=== PATIENT | female | born 1970 | race Caucasian/White ===

== ENCOUNTER 2016-12-02 05:42 | Emergency (ER) | payer OTHER ==
[2016-12-02] MEDS ORDERED: ALBUTEROL SO4 2.5/IPRATROPIUM 0.5 INH SOL 3 ML VIAL.NEB. NEB ONE ×2 (06:10→06:13)
--- NOTE | 2016-12-02 06:27 | PDOC ---
*Physical Exam - Vital Signs Last Vital Signs Temp Pulse Resp BP Pulse Ox 97.9 F 80 16 126/83 98 12/02/16 05:56 12/02/16 05:56 12/02/16 05:56 12/02/16 05:56 12/02/16 06:07 ED Treatment Course - Medications Given in the ED: ED Medications Discontinued Medications Generic Name Dose Route Start Last Admin Trade Name Freq PRN Reason Stop Dose Admin Albuterol/Ipratropium 1 amp 12/02/16 06:10 12/02/16 06:15 Duoneb - NEB 12/02/16 06:11 1 amp ONCE ONE Administration Medical Decision Making - Medical Decision Making 12/02/16 06:27 agree with care from NANNETTE Markham *DC/Admit/Observation/Transfer Diagnosis at time of Disposition: Asthma exacerbation - Discharge Dispostion Disposition: HOME Condition at time of disposition: Improved - Prescriptions Prescriptions: Prednisone [Deltasone -] 40 mg PO DAILY #8 tablet Albuterol 0.083% Nebulizer Yun [Ventolin 0.083% Nebulizer Soln -] 1 neb NEB PRN #1 pack Albuterol Sulfate Inhaler - [Ventolin HFA Inhaler -] 1 - 2 inh PO QID #1 inhaler - Referrals Referrals: Megan Flynn SKINNING MACHINE FEEDER [Primary Care Provider] - - Patient Instructions Printed Discharge Instructions: DI for Asthma -- Adult Additional Instructions: Discharge Instructions: -Use inhaler as prescribed for asthma symptoms -Take Prednisone as prescribed and complete entire course -Follow up with your doctor within 1 week -Return to the ER with any worsening or concerning symptoms
[2016-12-02] MEDS ORDERED: DEXAMETHASONE LIQUID 0.5 MG/5 ML 240 ML BULK BOTTLE PO ONE (06:36)
--- NOTE | 2016-12-02 06:36 | PDOC ---
[id number] DIFFICULTY BREATHING Time Seen by Provider: 12/02/16 06:02 - History of Present Illness Initial Comments: 12/02/16 06:36 CHIEF COMPLAINT: asthma attack HISTORY OF PRESENT ILLNESS: 45-year-old female with hx of asthma, GERD HIV, presents to the emergency dept for asthma attack. Pt states she was using her inhaler with no relief. No recent travel or sick contacts. PAST MEDICAL HISTORY: Denies past medical history FAMILY HISTORY: Denies SOCIAL HISTORY: Denies tobacco, alcohol, illicit drug use. SURGICAL HISTORY: Denies ALLERGIES: No known drug allergies REVIEW OF SYSTEMS General/Constitutional: Denies fever or chills. Denies weakness, weight change. HEENT: Denies change in vision. Denies ear pain or discharge. Denies sore throat. Cardiovascular: Denies chest pain or shortness of breath. Respiratory: Shortness of breath. Gastrointestinal: Denies nausea, vomiting, diarrhea or constipation. Denies rectal bleeding. Genitourinary: Denies dysuria, frequency, or change in urination. Musculoskeletal: Denies joint or muscle swelling or pain. Denies neck or back pain. Skin and breasts: Denies rash or easy bruising. Neurologic: Denies headache, vertigo, loss of consciousness, or loss of sensation. PHYSICAL EXAM General Appearance: Well-appearing, appropriately dressed. No apparent distress , no intoxication. HEENT: EOMI, PERRLA, normal ENT inspection, normal voice, TMs normal, pharynx normal. No conjunctival pallor. No photophobia, scleral icterus. Neck: Supple. Trachea midline. No tenderness, rigidity, carotid bruit, stridor , lymphadenopathy, or thyromegaly. Respiratory/Chest: Lungs CTAB. No shortness of breath, chest tenderness, respiratory distress, accessory muscle use. No crackles, rales, rhonchi, stridor , wheezing, dullness Cardiovascular: RRR. S1, S2. No JVD, murmur, bradycardia, tachycardia. Vascular Pulses: Dorsalis-Pedis (R): 2+, Dorsalis-Pedis (L): 2+ Gastrointestinal/Abdominal: Normal bowel sounds. Abdomen soft, non-distended. No tenderness or rebound tenderness. No organomegaly, pulsatile mass, guarding , hernia, hepatomegaly, splenomegaly. Lymphatic: No adenopathy, tenderness. Musculoskeletal/Extremities: Normal inspection. FROM of all extremities, normal capillary refill. Pelvis Stable. No CVA tenderness. No tenderness to extremities, pedal edema, swelling, erythema or deformity. Integumentary: Appropriate color, dry, warm. No cyanosis, erythema, jaundice or rash Neurologic: base ply hand II-XII intact. Fully oriented, alert. Appropriate mood/affect. Motor strength 5/5. No appreciable EOM palsy, facial droop or sensory deficit. 12/02/16 06:41 12/02/16 06:42 Past History - Past Medical History Allergies/Adverse Reactions: Allergies Allergy/AdvReac Type Severity Reaction Status Date / Time No Known Allergies Allergy Verified 12/02/16 05:55 Home Medications: Ambulatory Orders Albuterol 0.083% Nebulizer Yun [Ventolin 0.083% Nebulizer Soln -] 1 neb NEB PRN PRN #1 pack 05/28/16 Albuterol Sulfate Inhaler - [Ventolin HFA Inhaler -] 1 - 2 inh PO QID #1 inhaler 05/28/16 Budesonide/Formeterol Fumarate [SYMBICORT 160/4.5mcg -] 2 inh IH BID #1 inhaler 05/28/16 Dolutegravir Sodium [Tivicay] 1 tab PO DAILY #30 tablet 05/28/16 Emtricita/Rilpivirine/Tenof Df [Complera Tablet] 1 tab PO DAILY #30 tablet 05/28 Loratadine [Claritin -] 10 mg PO DAILY #30 tablet 05/28/16 Montelukast Na [Singulair -] 10 tab PO HS #30 tablet 05/28/16 Ranitidine [Zantac -] 150 mg PO DAILY #30 tablet 05/28/16 Sulfamethoxazole/Trimethoprim [Bactrim DS -] 1 tab PO DAILY #30 tablet 05/28/16 Citalopram Hydrobromide [Celexa -] 10 mg PO DAILY #30 tablet 09/30/16 Albuterol 0.083% Nebulizer Yun [Ventolin 0.083% Nebulizer Soln -] 1 neb NEB PRN #1 pack 12/02/16 Albuterol Sulfate Inhaler - [Ventolin HFA Inhaler -] 1 - 2 inh PO QID #1 inhaler 12/02/16 Prednisone [Deltasone -] 40 mg PO DAILY #8 tablet 12/02/16 Anemia: No Asthma: Yes Cancer: No Cardiac Disorders: No CVA: No COPD: No CHF: No Dementia: No Diabetes: No GI Disorders: No Disorders: No HTN: No Hypercholesterolemia: No HIV: Yes Liver Disease: No Seizures: No Thyroid Disease: No - Surgical History Abdominal Surgery: No Appendectomy: No Cardiac Surgery: No Cholecystectomy: No Lung Surgery: No Neurologic Surgery: No Orthopedic Surgery: No - Immunization History Immunization Up to Date: Yes - Psycho/Social/Smoking Cessation Hx Anxiety: No Suicidal Ideation: No Smoking Status: No Smoking History: Never smoked Have you smoked in the past 12 months: No Number of Cigarettes Smoked Daily: 0 Cigars Per Day: 0 Information on smoking cessation initiated: No Hx Alcohol Use: No Drug/Substance Use Hx: No Substance Use Type: None Hx Substance Use Treatment: No Respiratory Specific PMHX - Complaint Specific PMHX TB (Tuberculosis): No *Physical Exam - Vital Signs Last Vital Signs Temp Pulse Resp BP Pulse Ox 97.9 F 80 16 126/83 98 12/02/16 05:56 12/02/16 05:56 12/02/16 05:56 12/02/16 05:56 12/02/16 06:07 ED Treatment Course - Medications Given in the ED: ED Medications Discontinued Medications Generic Name Dose Route Start Last Admin Trade Name Freq PRN Reason Stop Dose Admin Albuterol/Ipratropium 1 amp 12/02/16 06:10 12/02/16 06:15 Duoneb - NEB 12/02/16 06:11 1 amp ONCE ONE Administration Medical Decision Making - Medical Decision Making 12/02/16 06:43 45-year-old female with hx of asthma, GERD HIV, presents to the emergency dept for asthma exacerbation. Pt states she was using her inhaler with no relief. -Duoneb Patient reassessed, states she feels better but "still a little tight." Patient is still wheezing bilaterally. -10 mg Decadron po -Influenza rapid swab -CXR Case discussed in detail with oncoming emergency provider including history, physical exam and ancillary studies. In brief, this patient is being seen in the ED for a chief complaint of: asthma exacerbation I have completed the initial assessment interview note and have ordered the following labs: CXR, flu swab Plan for disposition as follows: pending Oncoming [facility] Wohltman has assumed care for the patient and will complete the evaluation and treatment. *DC/Admit/Observation/Transfer Diagnosis at time of Disposition: Asthma exacerbation - Discharge Dispostion Disposition: HOME Condition at time of disposition: Improved - Prescriptions Prescriptions: Prednisone [Deltasone -] 40 mg PO DAILY #8 tablet Albuterol 0.083% Nebulizer Yun [Ventolin 0.083% Nebulizer Soln -] 1 neb NEB PRN #1 pack Albuterol Sulfate Inhaler - [Ventolin HFA Inhaler -] 1 - 2 inh PO QID #1 inhaler - Referrals Referrals: Megan Flynn, SPLITTING MACHINE OPERATOR [Primary Care Provider] - - Patient Instructions Printed Discharge Instructions: DI for Asthma -- Adult Additional Instructions: Discharge Instructions: -Use inhaler as prescribed for asthma symptoms -Take Prednisone as prescribed and complete entire course -Follow up with your doctor within 1 week -Return to the ER with any worsening or concerning symptoms
[2016-12-02 06:37] VITALS: TEMP 97.9; BMI 25.4
[2016-12-02] MEDS ORDERED: DEXAMETHASONE SOD PHOSPHATE 10 MG/1 ML VIAL ONE (06:41)
--- NOTE | 2016-12-02 07:31 | PDOC ---
ED Treatment Course - Medications Given in the ED: ED Medications Discontinued Medications Generic Name Dose Route Start Last Admin Trade Name Albin PRN Reason Stop Dose Admin Albuterol/Ipratropium 1 amp 12/02/16 06:10 12/02/16 06:15 Duoneb - NEB 12/02/16 06:11 1 amp ONCE ONE Administration Dexamethasone 10 mg 12/02/16 06:36 12/02/16 06:51 Decadron Liquid - PO 12/02/16 06:37 10 mg ONCE ONE Administration Progress Note - Progress Note Progress Note: I have received report from NANNETTE Markham regarding this patient. Pt's initial chief complaint: asthma exacerbation Pt's work up completed prior to sign out: CXR Pt treatment given from prior staff: arsen Pena Pt plan to be completed: Awaiting influenza and reassess Dispo: most likely d/c Medical Decision Making - Medical Decision Making A/P: 46 y/o afebrile female with asthma exacerbation. waiting for influenza and reassess. Influenza - negative CXR - negative The patient states she feels much better since having the treatments. Will discharge to home with an rx for 4 days of prednisone and albuterol inhaler. Pt instructed to return to the ER with any worsening or concerning symptoms. The patient verbalizes understanding of all instructions, has no further questions and is awaiting discharge. *DC/Admit/Observation/Transfer Diagnosis at time of Disposition: Asthma exacerbation - Discharge Dispostion Disposition: HOME Condition at time of disposition: Improved - Referrals Referrals: Megan Flynn CARPENTER LABOR SUPERVISOR [Primary Care Provider] - - Patient Instructions Printed Discharge Instructions: DI for Asthma -- Adult Additional Instructions: Discharge Instructions: -Use inhaler as prescribed for asthma symptoms -Take Prednisone as prescribed and complete entire course -Follow up with your doctor within 1 week -Return to the ER with any worsening or concerning symptoms
[2016-12-02 08:13] VITALS: BP 117/66; PULSE 94
== END 2016-12-02 08:35 | disposition home or self-care (01) ==
LOC: JER 05:42
PROC: 3E0F7GC Introduction of Other Therapeutic Substance into Respiratory Tract, Via Natural or Artificial Opening (ICD-10-PCS; principal; 2016-12-02)
DX: J45.901 Unspecified asthma with (acute) exacerbation (principal); Z21 Asymptomatic human immunodeficiency virus [HIV] infection status; K21.9 Gastro-esophageal reflux disease without esophagitis; J45.909 Unspecified asthma, uncomplicated
CPT/HCPCS: 71020-TC; 87804; 99285-25

== ENCOUNTER 2017-06-06 18:30 | Emergency (ER) | payer OTHER ==
[2017-06-06 18:37] VITALS: BP 120/80; PULSE 71; TEMP 97.8; BMI 27.3
--- NOTE | 2017-06-06 19:31 | PDOC ---
History of Present Illness - General Chief Complaint: Injury Stated Complaint: LACERATION Time Seen by Provider: 06/06/17 18:42 History Source: Patient Exam Limitations: No Limitations - History of Present Illness Initial Comments: 06/06/17 19:26 CC fell on steps hitting left elbow and cutting left forearm Occurred: reports: just prior to arrival Severity: reports: mild Pain Location: reports: upper extremity Method of Injury: Yes: fall Past History - Past Medical History Allergies/Adverse Reactions: Allergies Allergy/AdvReac Type Severity Reaction Status Date / Time No Known Allergies Allergy Verified 06/06/17 18:32 Home Medications: Ambulatory Orders Dolutegravir Sodium [Tivicay] 1 tab PO DAILY #30 tablet 05/28/16 Emtricita/Rilpivirine/Tenof Df [Complera Tablet] 1 tab PO DAILY #30 tablet 05/28 Loratadine [Claritin -] 10 mg PO DAILY #30 tablet 05/28/16 Albuterol 0.083% Nebulizer Yun [Ventolin 0.083% Nebulizer Soln -] 1 neb NEB PRN #1 pack 04/06/17 Albuterol Sulfate Inhaler - [Ventolin HFA Inhaler -] 1 - 2 inh PO QID #1 inhaler 04/06/17 Budesonide/Formeterol Fumarate [SYMBICORT 160/4.5mcg -] 2 inh IH BID #1 inhaler 04/06/17 Citalopram Hydrobromide [Celexa -] 10 mg PO DAILY #30 tablet 04/06/17 Lactose-Reduced Food [Ensure Liquid] 237 ml PO TID #90 liquid 04/06/17 Montelukast Na [Singulair -] 10 tab PO HS #30 tablet 04/06/17 Ranitidine [Zantac -] 150 mg PO DAILY #30 tablet 04/06/17 Sulfamethoxazole/Trimethoprim [Bactrim DS -] 1 tab PO DAILY #30 tablet 04/06/17 Fluticasone/Salmeterol [Advair 250-50 Diskus] 1 each IH BID #1 blst.w.dev Anemia: No Asthma: Yes Cancer: No Cardiac Disorders: No CVA: No COPD: No CHF: No Dementia: No Diabetes: No GI Disorders: No Disorders: No HTN: No Hypercholesterolemia: No HIV: Yes Liver Disease: No Seizures: No Thyroid Disease: No - Surgical History Abdominal Surgery: No Appendectomy: No Cardiac Surgery: No Cholecystectomy: No Lung Surgery: No Neurologic Surgery: No Orthopedic Surgery: No - Immunization History Immunization Up to Date: Yes - Psycho/Social/Smoking Cessation Hx Anxiety: No Suicidal Ideation: No Smoking Status: No Smoking History: Never smoked Have you smoked in the past 12 months: No Number of Cigarettes Smoked Daily: 0 Cigars Per Day: 0 Information on smoking cessation initiated: No Hx Alcohol Use: No Drug/Substance Use Hx: No Substance Use Type: None Hx Substance Use Treatment: No Review of Systems - Review of Systems Constitutional: Yes: Symptoms Reported HEENTM: No: Symptoms Reported Respiratory: No: Symptoms reported Musculoskeletal: Yes: Joint Pain. No: Back Pain, Neck Pain Integumentary: Yes: Other (laceration left forearm) *Physical Exam - Vital Signs Last Vital Signs Temp Pulse Resp BP Pulse Ox 97.8 F 71 18 120/80 100 06/06/17 18:33 06/06/17 18:33 06/06/17 18:33 06/06/17 18:33 06/06/17 18:33 - Physical Exam General Appearance: Yes: Appropriately Dressed Neck: positive: Supple. negative: Tender, Rigid, Tender midline Respiratory/Chest: positive: Lungs Clear Integumentary: positive: Other (6 cm laceration volar surface mid left forearm; also tenderness to olecron) Procedures - Laceration/Wound Repair Left Volar Arm Wound Length: 5.0 to 7.5 cm Wound's Depth, Shape: linear Irrigated w/ Saline: Yes Betadine Prep: Yes Anesthesia: 1% Lidocaine Amount of Anesthetic (ccs): 5 Wound Debrided: minimal Wound Repaired With: Sutures Suture Size/Type: 5:0, 4:0, nylon Number of Sutures: 10 ED Treatment Course - RADIOLOGY Radiology Studies Ordered: Category Date Time Status ELBOW-LEFT [RAD] Stat Radiology 06/06/17 18:49 Taken Medical Decision Making - Medical Decision Making 06/06/17 19:29 xray= negative read by me; Td = utd *DC/Admit/Observation/Transfer Diagnosis at time of Disposition: Contusion of elbow, left Qualifiers: Encounter type: initial encounter Qualified Code(s): S50.02XA - Contusion of left elbow, initial encounter Laceration of arm Qualifiers: Encounter type: initial encounter Laterality: left Qualified Code(s): S41.112A - Laceration without foreign body of left upper arm, initial encounter - Discharge Dispostion Disposition: HOME Condition at time of disposition: Stable Admit: No - Patient Instructions Additional Instructions: wound check in ED in 2 days; sutures out 12 days; keep dry x 2 days
== END 2017-06-06 19:35 | disposition home or self-care (01) ==
LOC: JERFT 18:30
PROC: 0JQH0ZZ Repair Left Lower Arm Subcutaneous Tissue and Fascia, Open Approach (ICD-10-PCS; principal; 2017-06-06)
DX: S51.812A Laceration without foreign body of left forearm, initial encounter (principal); S50.02XA Contusion of left elbow, initial encounter; Z21 Asymptomatic human immunodeficiency virus [HIV] infection status; W01.110A Fall on same level from slipping, tripping and stumbling with subsequent striking against sharp glass, initial encounter; Y93.89 Activity, other specified; Y92.89 Other specified places as the place of occurrence of the external cause; Y99.8 Other external cause status
CPT/HCPCS: 73070-TC-LT; 99282-25

== ENCOUNTER 2018-07-11 18:26 | Inpatient (IN) | payer OTHER ==
[2018-07-11 18:50] VITALS: BMI 24.5
[2018-07-11] MEDS ORDERED: methylPREDNISolone NA SUCC 125 MG/2 ML VIAL IVPB ONE (18:54)
[2018-07-11] MEDS ORDERED: FAMOTIDINE 20 MG/50 ML IVPB 20 MG/50 ML MG IVPB ONE ×2 (18:54→19:06)
[2018-07-11] MEDS ORDERED: EPINEPHrine 1:1,000 0.3 MG/0.3 ML SYR IM ONE (18:54)
--- NOTE | 2018-07-11 19:01 | PDOC ---
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 The home has recently been treated for insect - Physicial Exam PE: 07/11/18 19:14 head ncat slender 48 yo female p/w swollen eyelids eyes eomi neck supple throat uvula midline,no edema lungs cta b/l cvs tachycardia abd flat,nontender ext no edema skin hives neuro axox3,ambulatory psych anxious 07/11/18 19:42 - Medical Decision Making 07/11/18 20:44 initially we were told by pharmacy that the hospital has no injectable bendryl and pt received po benadryl unfortunately she started to c/o throat swelling and subcutaneous epi was given -We found injectable benadryl in telemetry and pt improved IMP anaphylaxis pt admitted for airway precautions
[2018-07-11] MEDS ORDERED: EPINEPHrine/PF 1 MG/1 ML (1:1,000) AMPULE ONE ×2 (19:05→20:07)
[2018-07-11] MEDS ORDERED: methylPREDNISolone NA SUCC 125 MG/2 ML VIAL ONE (19:05)
[2018-07-11] MEDS ORDERED: diphenhydrAMINE HCL 25 MG CAPSULE (FP) PO ONE ×2 (19:10→19:26)
[2018-07-11 19:16] LABS: HEMATOCRIT 39.5 % (32.4-45.2); HEMOGLOBIN 13.2 GM/dL (10.7-15.3); MCH 29.4 pg (25.7-33.7); MCHC 33.5 g/dl (32.0-36.0); MEAN CELL VOLUME 87.7 fl (80-96); PLATELET COUNT 212 K/MM3 (134-434); RDW 14.8 % (11.6-15.6); WHITE BLOOD COUNT 8.7 K/mm3 (4.0-10.0)
[2018-07-11] MEDS ORDERED: ACETAMINOPHEN INJECTION 100 ML IVPB ONE (19:26)
[2018-07-11] MEDS ORDERED: ACETAMINOPHEN 1000 MG/100 ML VIAL (NON FORMULARY) IVPB ONE (19:29)
[2018-07-11] MEDS ORDERED: EPINEPHrine 1:1,000 1 MG/1 ML - 30ML VIAL (INJECTION) SQ ONE ×2 (19:45→19:46)
--- NOTE | 2018-07-11 19:45 | PDOC ---
History of Present Illness - General Chief Complaint: Allergic Reaction Stated Complaint: ALLERGIC REACTION, DIFFICULTY BREATHING, FACE SWOL Time Seen by Provider: 07/11/18 18:48 History Source: Patient Exam Limitations: No Limitations - History of Present Illness Initial Comments: 07/11/18 20:10 Patient is a 48F with history of HIV, last CD4 count 215, here today complaining of an allergic reaction. Patient states that she did not have any recent changes in medications or new food exposure. 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 Endorses swelling to her eyes, throat pain, shortness of breath, nausea. Endorses chest pain and difficulty swallowing. Unsure of what medication she takes. Past History - Past Medical History Allergies/Adverse Reactions: Allergies Allergy/AdvReac Type Severity Reaction Status Date / Time No Known Allergies Allergy Verified 07/11/18 18:50 Home Medications: Ambulatory Orders Abacavir/Dolutegravir/Lamivudi [Triumeq Tablet] 1 tab PO DAILY 07/01/18 Albuterol 0.083% Nebulizer Yun [Ventolin 0.083% Nebulizer Soln -] 1 neb PO QID # 1 box 07/01/18 Albuterol Sulfate Inhaler - [Ventolin HFA Inhaler -] 2 inh PO QID #1 inhaler 09/06 Esomeprazole Magnesium 1 cap PO DAILY #30 capsule.dr 07/01/18 Fluticasone/Salmeterol [Advair 250-50 Diskus] 1 inh PO BID #1 blst.w.dev Loratadine [Claritin -] 1 tab PO DAILY #30 tablet 07/01/18 Montelukast Na [Singulair -] 1 tab PO HS #30 tablet 07/01/18 Tenofovir Disoproxil Fumarate [Viread -] 1 tab PO DAILY 07/01/18 Anemia: No Asthma: Yes Cancer: No Cardiac Disorders: No CVA: No COPD: No CHF: No Dementia: No Diabetes: No GI Disorders: No Disorders: No HTN: No Hypercholesterolemia: No Liver Disease: No Seizures: No Thyroid Disease: No - Surgical History Abdominal Surgery: No Appendectomy: No Cardiac Surgery: No Cholecystectomy: No Lung Surgery: No Neurologic Surgery: No Orthopedic Surgery: No - Immunization History Immunization Up to Date: Yes - Suicide/Smoking/Psychosocial Hx Smoking Status: No Smoking History: Never smoked Have you smoked in the past 12 months: No Number of Cigarettes Smoked Daily: 0 Cigars Per Day: 0 Information on smoking cessation initiated: No Hx Alcohol Use: No Drug/Substance Use Hx: No Substance Use Type: None Hx Substance Use Treatment: No Review of Systems - Review of Systems Comments:: 07/11/18 20:13 GENERAL/CONSTITUTIONAL: No fever or chills. No weakness. HEAD, EYES, EARS, NOSE AND THROAT: +eye swelling. No ear pain or discharge. + sore throat. CARDIOVASCULAR: No chest pain +shortness of breath RESPIRATORY: No cough, + wheezing, no hemoptysis. GASTROINTESTINAL: +nausea, no vomiting, diarrhea or constipation. GENITOURINARY: No dysuria, frequency, or change in urination. MUSCULOSKELETAL: No joint or muscle swelling or pain. No neck or back pain. SKIN: No rash NEUROLOGIC: No headache, vertigo, loss of consciousness, or change in strength/ sensation. ENDOCRINE: No increased thirst. No abnormal weight change HEMATOLOGIC/LYMPHATIC: No anemia, easy bleeding, or history of blood clots. ALLERGIC/IMMUNOLOGIC: No hives or skin allergy. *Physical Exam - Vital Signs Last Vital Signs Temp Pulse Resp BP Pulse Ox 97.7 F 63 16 107/65 100 07/11/18 18:46 07/11/18 18:46 07/11/18 18:46 07/11/18 18:46 07/11/18 18:46 - Physical Exam Comments: 07/11/18 20:15 GENERAL: Awake, alert, and fully oriented, in no acute distress HEAD: No signs of trauma, normocephalic, atraumatic EYES: PERRLA, EOMI, sclera anicteric, conjunctiva clear, eyelids swollen, difficult to open eyes ENT: Auricles normal inspection, hearing grossly normal, nares patent, mallampati 2 NECK: Normal ROM, supple, no lymphadenopathy, JVD, or masses LUNGS: No distress, speaks full sentences, wheezes bilaterally HEART: Regular rate and rhythm, normal S1 and S2, no murmurs, rubs or gallops, peripheral pulses normal and equal bilaterally. ABDOMEN: Soft, nontender, normoactive bowel sounds. No guarding, no rebound. No masses EXTREMITIES: Normal inspection, Normal range of motion, no edema. No clubbing or cyanosis. NEUROLOGICAL: Cranial nerves II through XII grossly intact. Normal speech, no focal sensorimotor deficits SKIN: Warm, Dry, normal turgor, no rashes or lesions noted. ED Treatment Course - LABORATORY CBC & Chemistry Diagram: 07/11/18 19:08 07/11/18 19:08 - ADDITIONAL ORDERS Additional order review: 07/11/18 19:08 RBC 4.50 MCV 87.7 MCHC 33.5 RDW 14.8 MPV 9.0 - Medications Given in the ED: ED Medications Discontinued Medications Generic Name Dose Route Start Last Admin Trade Name Albin PRN Reason Stop Dose Admin Acetaminophen 1,000 mg 07/11/18 19:29 07/11/18 19:34 Ofirmev Injection - IVPB 07/11/18 19:30 1,000 mg ONCE ONE Administration Diphenhydramine HCl 50 mg 07/11/18 18:54 07/11/18 19:25 Benadryl Injection - IVPUSH 07/11/18 18:55 Not Given ONCE ONE Diphenhydramine HCl 50 mg 07/11/18 19:10 07/11/18 19:34 Benadryl - PO 07/11/18 19:11 50 mg ONCE ONE Administration Epinephrine 0.3 mg 07/11/18 18:54 07/11/18 19:24 Epipen 0.3mg - IM 07/11/18 18:55 0.3 mg ONCE ONE Administration Famotidine/Sodium Chloride 20 mg in 50 mls @ 100 mls/hr 07/11/18 18:54 19:24 Pepcid 20 Mg Premixed Ivpb - IVPB 07/11/18 19:23 100 mls/hr ONCE ONE Administration Methylprednisolone Sodium Succinate 125 mg 07/11/18 18:54 07/11/18 19:15 Solu-Medrol - IVPB 07/11/18 18:55 125 mg ONCE ONE Administration Medical Decision Making - Medical Decision Making 07/11/18 20:16 Patient is 48F with history of HIV here today with allergic reaction. Vitals normal and stable. Given benadryl PO initially due to lack of IV form, IV form later found on inpatient floor, given. Also given pepcid, IM epi, solumedrol. After initial medication given, patient complained of increased pain in throat. Mallampati now grade 3 with increased swelling in face. Airway equipment at bedside, given additional round of IM epi. Patient now improving. Will monitor, likely admit to ICU. 07/11/18 20:[address] Approved to ICU by Dr Shana Blair. 07/11/18 23:[address] Tao for admission. *DC/Admit/Observation/Transfer Diagnosis at time of Disposition: Anaphylaxis - Discharge Dispostion Condition at time of disposition: Critical Decision to Admit order: Yes - Referrals - Patient Instructions - Post Discharge Activity
[2018-07-11 19:51] LABS: ALBUMIN 3.9 g/dl (3.4-5.0); ALK PHOS 83 U/L (45-117); ANION GAP 8 MMOL/L (8-16); BILIRUBIN,TOTAL 0.3 mg/dL (0.2-1); BLOOD UREA NITROGEN 13 mg/dL (7-18); CALCIUM 8.4 mg/dL (8.5-10.1); CHLORIDE 109 mmol/L (98-107); CO2 27 mmol/L (21-32); CREATININE 0.6 mg/dL (0.55-1.3); GLUCOSE,RANDOM 83 mg/dL (74-106); POTASSIUM 3.8 mmol/L (3.5-5.1); SGOT/AST 19 U/L (15-37); SGPT/ALT 27 U/L (13-61); SODIUM 145 mmol/L (136-145)
--- NOTE | 2018-07-11 20:55 | HP ---
Admitting History and Physical - Primary Care Physician PCP: Robbi Tao - Admission History of Present Illness: - 48F with history of HIV, last CD4 count 215, here today complaining of an allergic reaction. Patient states that she did not have any recent changes in medications or new food exposure. 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 Unsure of what medication she takes. - Past Medical History ...LMP: 07/27/14 Infectious Disease: Yes: HIV - Smoking History Smoking history: Never smoked Have you smoked in the past 12 months: No Aproximately how many cigarettes per day: 0 - Alcohol/Substance Use Hx Alcohol Use: No Home Medications - Allergies Allergies/Adverse Reactions: Allergies Allergy/AdvReac Type Severity Reaction Status Date / Time No Known Allergies Allergy Verified 07/11/18 18:50 - Home Medications Home Medications: Ambulatory Orders Abacavir/Dolutegravir/Lamivudi [Triumeq Tablet] 1 tab PO DAILY 07/01/18 Albuterol 0.083% Nebulizer Yun [Ventolin 0.083% Nebulizer Soln -] 1 neb PO QID # 1 box 07/01/18 Albuterol Sulfate Inhaler - [Ventolin HFA Inhaler -] 2 inh PO QID #1 inhaler 09/06 Esomeprazole Magnesium 1 cap PO DAILY #30 capsule. 07/01/18 Fluticasone/Salmeterol [Advair 250-50 Diskus] 1 inh PO BID #1 blst.w.dev Loratadine [Claritin -] 1 tab PO DAILY #30 tablet 07/01/18 Montelukast Na [Singulair -] 1 tab PO HS #30 tablet 07/01/18 Tenofovir Disoproxil Fumarate [Viread -] 1 tab PO DAILY 07/01/18 Family Disease History - Family Disease History Family Disease History: Other: Grandparent (pat gma hx liver disease), Father (a &w), Mother (a&w, stable htn, thyroid, arthritis), Brother (all a&w), Sister ( all a&w), Son (1), Daughter (1) Physical Examination Vital Signs: Vital Signs Temperature 97.7 F 07/11/18 18:46 Pulse Rate 63 07/11/18 18:46 Respiratory Rate 16 07/11/18 18:46 Blood Pressure 107/65 07/11/18 18:46 O2 Sat by Pulse Oximetry (%) 100 07/11/18 18:46 Constitutional: Yes: Calm HENT: Yes: Atraumatic, Other (throat wnl) Neck: Yes: Supple Cardiovascular: Yes: Regular Rate and Rhythm Respiratory: Yes: Rhonchi Gastrointestinal: Yes: Normal Bowel Sounds Extremities: Yes: WNL Edema: No Neurological: Yes: Alert, Oriented Labs: CBC, BMP 07/11/18 19:08 07/11/18 19:08 Problem List - Problems (1) Anaphylaxis Assessment/Plan: on iv steroids iv benadryl npo ent consult Code(s): T78.2XXA - ANAPHYLACTIC SHOCK, UNSPECIFIED, INITIAL ENCOUNTER (2) AIDS (acquired immune deficiency syndrome) Code(s): B20 - HUMAN IMMUNODEFICIENCY VIRUS [HIV] DISEASE Assessment/Plan Laboratory Tests 07/11/18 07/11/18 19:08 19:08 WBC 8.7 RBC 4.50 Hgb 13.2 Hct 39.5 MCV 87.7 MCH 29.4 MCHC 33.5 RDW 14.8 Plt Count 212 MPV 9.0 Sodium 145 Potassium 3.8 Chloride 109 H Carbon Dioxide 27 Anion Gap 8 BUN 13 Creatinine 0.6 Creat Clearance w eGFR > 60 Random Glucose 83 Calcium 8.4 L Total Bilirubin 0.3 AST 19 ALT 27 Alkaline Phosphatase 83 Total Protein 8.0 Albumin 3.9 Active Medications Generic Name Dose Route Start Last Admin Trade Name Noeq PRN Reason Stop Dose Admin Diphenhydramine HCl 25 mg 07/11/18 21:00 07/12/18 14:55 Benadryl Injection - IVPB 25 mg Q6H-IV TRENT Administration Sodium Chloride 1,000 mls @ 75 mls/hr 07/11/18 21:00 07/11/18 23:11 Normal Saline - IV 75 mls/hr ASDIR TRENT Administration Methylprednisolone Sodium Succinate 60 mg 07/12/18 03:00 07/12/18 14:53 Solu-Medrol - IVPUSH 60 mg Q6H-IV TRENT Administration
[2018-07-11] MEDS ORDERED: SODIUM CHLORIDE 1,000 ML IV SCH (21:00)
--- NOTE | 2018-07-12 00:11 | HP ---
CHIEF COMPLAINT: Swelling of face and itching PCP: Dr. Tao HISTORY OF PRESENT ILLNESS: Patient is a 48 year old female with a PMHx of HIV w/ last CD4 count 215 who presented here today complaining of swelling of bilateral eyes associated with shortness of breath, throat pain and difficulty swallowing. 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 Around 1400 patient reports she started having bilateral eye swelling with itching throughout her body. Patient reports she did not use any chemicals today except for hand soap, which is the normal hand soap she uses. Patient reports having shortness of breath with complete eyes closed shut from the swelling, which prompted this hospital visit. Patient denies any changes to her food, laundry detergents, soap, perfume, or food. Patient denies taking any new medications. Otherwise, patient currently denies any fever, chills, vomiting , abdominal pain, chest pain, palpitations, headaches, diarrhea, constipation. In the ED patients vitals were wnl and stable 02 saturation. She was given Benadryl PO and IV, Pepcid, 2 IM epi, and solumedrol. Patient continued to have increasing throat pain and swelling of the face. 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 07/01/18 Fluticasone/Salmeterol [Advair 1 inh PO BID #1 blst.w.dev 07/01/18 250-50 Diskus] Loratadine [Claritin -] 1 tab PO DAILY #30 tablet 07/01/18 Montelukast Na [Singulair -] 1 tab PO HS #30 tablet 07/01/18 Tenofovir Disoproxil Fumarate 1 tab PO DAILY 07/01/18 [Viread -] REVIEW OF SYSTEMS CONSTITUTIONAL: Absent: fever, chills, diaphoresis, generalized weakness, malaise, loss of appetite, weight change HEENT: throat pain, difficulty swallowing, eye swelling Absent: rhinorrhea, nasal congestion, throat swelling, mouth swelling, ear pain , eye pain, visual changes CARDIOVASCULAR: Absent: chest pain, syncope, palpitations, irregular heart rate, lightheadedness , peripheral edema RESPIRATORY: shortness of breath Absent: cough, dyspnea with exertion, orthopnea, wheezing, stridor, hemoptysis GASTROINTESTINAL: Absent: abdominal pain, abdominal distension, nausea, vomiting, diarrhea, constipation, melena, hematochezia GENITOURINARY: Absent: dysuria, frequency, urgency, hesitancy, hematuria, flank pain, genital pain MUSCULOSKELETAL: Absent: myalgia, arthralgia, joint swelling, back pain, neck pain SKIN: itching Absent: rash, pallor HEMATOLOGIC/IMMUNOLOGIC: Absent: easy bleeding, easy bruising, lymphadenopathy, frequent infections ENDOCRINE: Absent: unexplained weight gain, unexplained weight loss, heat intolerance, cold intolerance NEUROLOGIC: Absent: headache, focal weakness or paresthesias, dizziness, unsteady gait, seizure, mental status changes, bladder or bowel incontinence PSYCHIATRIC: Absent: anxiety, depression, suicidal or homicidal ideation, hallucinations. PHYSICAL EXAMINATION Vital Signs - 24 hr 07/11/18 07/11/18 07/11/18 18:46 19:15 20:00 Temperature 97.7 F Pulse Rate 63 Pulse Rate [ 87 Apical] Respiratory 16 19 Rate Blood Pressure 107/65 Blood Pressure 133/76 [Right Arm] O2 Sat by Pulse 100 100 97 Oximetry (%) 07/11/18 07/11/18 20:15 21:00 Temperature Pulse Rate Pulse Rate [ 89 97 H Apical] Respiratory 21 H 23 H Rate Blood Pressure Blood Pressure 138/84 134/74 [Right Arm] O2 Sat by Pulse 97 96 Oximetry (%) GENERAL: Awake, alert, and fully oriented, in no acute distress. HEAD: Normal with no signs of trauma. EYES: Pupils equal, round and reactive to light, sclera anicteric, conjunctiva clear. Bilateral eye swelling with difficulty opening eyes. EARS, NOSE, THROAT: Ears normal, nares patent, oropharynx clear without exudates. Moist mucous membranes. No Uvula swelling NECK: Normal range of motion, supple without lymphadenopathy, JVD, or masses. LUNGS: Breath sounds equal, clear to auscultation bilaterally. No wheezes, and no crackles. No accessory muscle use. HEART: Regular rate and rhythm, normal S1 and S2 without murmur, rub or gallop. ABDOMEN: Soft, nontender, not distended, normoactive bowel sounds, no guarding, no rebound, no masses. MUSCULOSKELETAL: No CVA tenderness. UPPER EXTREMITIES: No peripheral edema. LOWER EXTREMITIES: No peripheral edema. NEUROLOGICAL: Cranial nerves II-XII intact. Normal speech. PSYCHIATRIC: Cooperative. Good eye contact. Appropriate mood and affect. SKIN: Warm, dry, normal turgor, no rashes or lesions noted, normal capillary refill. Laboratory Results - last 24 hr 07/11/18 07/11/18 19:08 19:08 WBC 8.7 RBC 4.50 Hgb 13.2 Hct 39.5 MCV 87.7 MCH 29.4 MCHC 33.5 RDW 14.8 Plt Count 212 MPV 9.0 Sodium 145 Potassium 3.8 Chloride 109 H Carbon Dioxide 27 Anion Gap 8 BUN 13 Creatinine 0.6 Creat Clearance w eGFR > 60 Random Glucose 83 Calcium 8.4 L Total Bilirubin 0.3 AST 19 ALT 27 Alkaline Phosphatase 83 Total Protein 8.0 Albumin 3.9 IMAGES: Chest X-Ray (07/12/18): No acute pulmonary disease ASSESSMENT/PLAN: Patient is a 48 year old female who presented for bilateral eye swelling, pruritis, throat pain with shortness of breath and was found to have an Allergic reaction from unknown source. Patient admitted to ICU for further monitoring and management. Angioedema -Likely secondary to allergic reaction -Pepcid, IM epi, solumedrol and Benadryl given in ED. Continue Benadyl and patient placed on Solumedrol 60mg IVPB Q6H -Will need to continue 02 monitoring as well as frequent ENT checks. HIV -Last CD count 215 and [facility] -Continue home medication Viread and Triumeq
--- NOTE | 2018-07-12 00:32 | CONSULT ---
Consultation: REQUESTING PROVIDER: Dr. Tao CONSULT REQUEST: We have been asked to medically evaluate this patient for Angioedema. HISTORY OF PRESENT ILLNESS: Patient is a 48 year old female with a PMHx of HIV w/ last CD4 count 215 who presented here today complaining of swelling of bilateral eyes associated with shortness of breath, throat pain and difficulty swallowing. 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 Around 1400 patient reports she started having bilateral eye swelling with itching throughout her body. Patient reports she did not use any chemicals today except for hand soap, which is the normal hand soap she uses. Patient reports having shortness of breath with complete eyes closed shut from the swelling, which prompted this hospital visit. Patient denies any changes to her food, laundry detergents, soap, perfume, or food. Patient denies taking any new medications. Otherwise, patient currently denies any fever, chills, vomiting , abdominal pain, chest pain, palpitations, headaches, diarrhea, constipation. In the ED patients vitals were wnl and stable 02 saturation. She was given Benadryl PO and IV, Pepcid, 2 IM epi, and solumedrol. Patient continued to have increasing throat pain and swelling of the face. 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 Smoking: Denies Alcohol: Denies Drugs: Denies Family History: Father- No medical problems Mother- HTN, thyroid, arthritis Allergies: No Known Allergies Allergy (Verified 07/11/18 18:50) REVIEW OF SYSTEMS: CONSTITUTIONAL: Absent: fever, chills, diaphoresis, generalized weakness, malaise, loss of appetite, weight change HEENT: throat pain, difficulty swallowing, eye swelling Absent: rhinorrhea, nasal congestion, throat swelling, mouth swelling, ear pain , eye pain, visual changes CARDIOVASCULAR: Absent: chest pain, syncope, palpitations, irregular heart rate, lightheadedness , peripheral edema RESPIRATORY: shortness of breath Absent: cough, dyspnea with exertion, orthopnea, wheezing, stridor, hemoptysis GASTROINTESTINAL: Absent: abdominal pain, abdominal distension, nausea, vomiting, diarrhea, constipation, melena, hematochezia GENITOURINARY: Absent: dysuria, frequency, urgency, hesitancy, hematuria, flank pain, genital pain MUSCULOSKELETAL: Absent: myalgia, arthralgia, joint swelling, back pain, neck pain SKIN: itching Absent: rash, pallor HEMATOLOGIC/IMMUNOLOGIC: Absent: easy bleeding, easy bruising, lymphadenopathy, frequent infections ENDOCRINE: Absent: unexplained weight gain, unexplained weight loss, heat intolerance, cold intolerance NEUROLOGIC: Absent: headache, focal weakness or paresthesias, dizziness, unsteady gait, seizure, mental status changes, bladder or bowel incontinence PSYCHIATRIC: Absent: anxiety, depression, suicidal or homicidal ideation, hallucinations. PHYSICAL EXAMINATION Vital Signs - 24 hr 07/11/18 07/11/18 07/11/18 18:46 19:15 20:00 Temperature 97.7 F Pulse Rate 63 Pulse Rate [ 87 Apical] Respiratory 16 19 Rate Blood Pressure 107/65 Blood Pressure 133/76 [Right Arm] O2 Sat by Pulse 100 100 97 Oximetry (%) 07/11/18 07/11/18 20:15 21:00 Temperature Pulse Rate Pulse Rate [ 89 97 H Apical] Respiratory 21 H 23 H Rate Blood Pressure Blood Pressure 138/84 134/74 [Right Arm] O2 Sat by Pulse 97 96 Oximetry (%) GENERAL: Awake, alert, and fully oriented, in no acute distress. HEAD: Normal with no signs of trauma. EYES: Pupils equal, round and reactive to light, sclera anicteric, conjunctiva clear. Bilateral eye swelling with difficulty opening eyes. EARS, NOSE, THROAT: Ears normal, nares patent, oropharynx clear without exudates. Moist mucous membranes. No Uvula swelling NECK: Normal range of motion, supple without lymphadenopathy, JVD, or masses. LUNGS: Breath sounds equal, clear to auscultation bilaterally. No wheezes, and no crackles. No accessory muscle use. HEART: Regular rate and rhythm, normal S1 and S2 without murmur, rub or gallop. ABDOMEN: Soft, nontender, not distended, normoactive bowel sounds, no guarding, no rebound, no masses. MUSCULOSKELETAL: No CVA tenderness. UPPER EXTREMITIES: No peripheral edema. LOWER EXTREMITIES: No peripheral edema. NEUROLOGICAL: Cranial nerves II-XII intact. Normal speech. PSYCHIATRIC: Cooperative. Good eye contact. Appropriate mood and affect. SKIN: Warm, dry, normal turgor, no rashes or lesions noted, normal capillary refill. Laboratory Results - last 24 hr 07/11/18 07/11/18 19:08 19:08 WBC 8.7 RBC 4.50 Hgb 13.2 Hct 39.5 MCV 87.7 MCH 29.4 MCHC 33.5 RDW 14.8 Plt Count 212 MPV 9.0 Sodium 145 Potassium 3.8 Chloride 109 H Carbon Dioxide 27 Anion Gap 8 BUN 13 Creatinine 0.6 Creat Clearance w eGFR > 60 Random Glucose 83 Calcium 8.4 L Total Bilirubin 0.3 AST 19 ALT 27 Alkaline Phosphatase 83 Total Protein 8.0 Albumin 3.9 Active Medications Generic Name Dose Route Start Last Admin Trade Name Freq PRN Reason Stop Dose Admin Diphenhydramine HCl 25 mg 07/11/18 21:00 07/11/18 23:13 Benadryl Injection - IVPB Not Given Q6H-IV TRENT Sodium Chloride 1,000 mls @ 75 mls/hr 07/11/18 21:00 07/11/18 23:11 Normal Saline - IV 75 mls/hr ASDIR TRENT Administration Methylprednisolone Sodium Succinate 60 mg 07/12/18 03:00 Solu-Medrol - IVPUSH Q6H-IV TRENT IMAGES: Chest X-Ray (07/12/18): No acute pulmonary disease ASSESSMENT/PLAN: Patient is a 48 year old female who presented for bilateral eye swelling, pruritis, throat pain with shortness of breath and was found to have an Allergic reaction from unknown source. Patient admitted to ICU for further monitoring and management. Angioedema -Likely secondary to allergic reaction -Pepcid, IM epi, solumedrol and Benadryl given in ED. Continue Benadyl and patient placed on Solumedrol 60mg IVPB Q6H -Will need to continue 02 monitoring as well as frequent ENT checks. HIV -Last CD count 215 and being followed at [facility] -Continue home medication Viread and Triumeq F/E/N -IV NS @75mls/hr -Electrolytes wnl -NPO Prophylaxis -Low risk. EAM for DVT -Pepcid for GI Disposition -Full code -Continue to monitor 02 saturation and worsening angioedema Shana Blair [id number] Visit type - Emergency Visit Emergency Visit: Yes ED Registration Date: 07/11/18 Care time: The patient presented to the Emergency Department on the above date and was hospitalized for further evaluation of their emergent condition. - New Patient This patient is new to me today: Yes Date on this admission: 07/11/18 - Critical Care Critical Care patient: Yes Total Critical Care Time (in minutes): 45 Critical Care Statement: The care of this patient involved high complexity decision making to prevent further life threatening deterioration of the patient 's condition and/or to evaluate & treat vital organ system(s) failure or risk of failure.
[2018-07-12] MEDS: methylPREDNISolone NA SUCC 40 MG/1 ML VIAL IVPUSH SCH ×3 (03:01→14:53)
[2018-07-12] MEDS ORDERED: IBUPROFEN 600 MG TABLET (FP) PO ONE (08:11)
[2018-07-12] MEDS ORDERED: methylPREDNISolone NA SUCC 125 MG/2 ML VIAL IVPUSH SCH (10:00)
--- NOTE | 2018-07-12 12:52 | EKG ---
Test Reason : Blood Pressure : / mmHG Vent. Rate : 089 BPM Atrial Rate : 089 BPM P-R Int : 154 ms QRS Dur : 088 ms QT Int : 388 ms P-R-T Axes : 054 -09 057 degrees QTc Int : 472 ms NORMAL SINUS RHYTHM POSSIBLE LEFT ATRIAL ENLARGEMENT BORDERLINE ECG Confirmed by MD VIPUL, MERCY ([id number]) on 07/12/2018 12:51:57 PM Referred By: Confirmed By:MERCY MATTHEW MD
--- NOTE | 2018-07-12 14:02 | PN ---
Physical Exam: SUBJECTIVE: Patient seen and examined at bedside. 48F with history of HIV, last CD4 count 215, here today complaining of an allergic reaction. Patient states that she did not have any recent changes in medications or new food exposure. 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 Unsure of what medication she takes. She states that the only thing she ate differently was some fresh goat cheese that she purchased in the market yesterday morning. Otherwise her other routines were not new. She denies mixing any chemicals. Denies new exposures. Denies history of taking LIA/ARB inhibitors. Denies history of C-1 esterase deficiency. She endorses significant allergies in the past. In the ED patients vitals were wnl and stable 02 saturation. She was given Benadryl PO and IV, Pepcid, 2 IM epi, and solumedrol. Patient continued to have increasing throat pain and swelling of the face. By this morning she states her sore throat has resolved and she is no longer symptomatic in any capacity. She has no complaints at bedside. She states she is hungry and would like to eat food. OBJECTIVE: Vital Signs Period Temp Pulse Resp BP Sys/Bermudez Pulse Ox Last 24 Hr 97.5 F-97.8 F 63-97 16-24 99-138/59-84 96-100 GENERAL: The patient is awake, alert, and fully oriented, in no acute distress. HEAD: Normal with no signs of trauma. EYES: The eyes are still mildly swollen b/l PERRL, extraocular movements intact , sclera anicteric, conjunctiva clear. No ptosis. ENT: Ears normal, nares patent, oropharynx clear without exudates, moist mucous membranes. NECK: Trachea midline, full range of motion, supple. LUNGS: Breath sounds equal, clear to auscultation bilaterally, no wheezes, no crackles, no accessory muscle use. HEART: Regular rate and rhythm, S1, S2 without murmur, rub or gallop. ABDOMEN: Soft, nontender, nondistended, normoactive bowel sounds, no guarding, no rebound, no hepatosplenomegaly, no masses. EXTREMITIES: 2+ pulses, warm, well-perfused, no edema. NEUROLOGICAL: Cranial nerves II through XII grossly intact. Normal speech. Normal gait. Patient ambulates around room without difficulty. PSYCH: Normal mood, normal affect. SKIN: Warm, dry, normal turgor, no rashes or lesions noted Laboratory Results - last 24 hr 07/11/18 07/11/18 19:08 19:08 WBC 8.7 RBC 4.50 Hgb 13.2 Hct 39.5 MCV 87.7 MCH 29.4 MCHC 33.5 RDW 14.8 Plt Count 212 MPV 9.0 Sodium 145 Potassium 3.8 Chloride 109 H Carbon Dioxide 27 Anion Gap 8 BUN 13 Creatinine 0.6 Creat Clearance w eGFR > 60 Random Glucose 83 Calcium 8.4 L Total Bilirubin 0.3 AST 19 ALT 27 Alkaline Phosphatase 83 Total Protein 8.0 Albumin 3.9 Active Medications Generic Name Dose Route Start Last Admin Trade Name Freq PRN Reason Stop Dose Admin Diphenhydramine HCl 25 mg 07/11/18 21:00 07/12/18 10:00 Benadryl Injection - IVPB 25 mg Q6H-IV TRENT Administration Sodium Chloride 1,000 mls @ 75 mls/hr 07/11/18 21:00 07/11/18 23:11 Normal Saline - IV 75 mls/hr ASDIR TRENT Administration Methylprednisolone Sodium Succinate 60 mg 07/12/18 03:00 07/12/18 10:03 Solu-Medrol - IVPUSH 60 mg Q6H-IV TRENT Administration ASSESSMENT/PLAN: Assessment: Patient is a 48 year old female who presented for bilateral eye swelling, pruritis, throat pain with shortness of breath and was found to have an Allergic reaction from unknown source. Patient admitted to ICU for further monitoring and management. Patient is now symptomatic morning after event. She is requesting food. We gave her a PO fluid trial. She drank without difficulty. We subsequently gave her a regular diet meal. She ate without difficulty. We had her walk around the ICU, she ambulated and ate without difficulty. DD includes but not limited to: Anaphylaxis, anaphylactic shock, angioedema, allergic reaction, PNA, C1-esterase deficiency. I spoke with Dr. Tao about the patient: We are going to transfer the patient over to Med/Surg. Plan: Angioedema -Likely secondary to allergic reaction -Pepcid, IM epi, solumedrol and Benadryl given in ED. Continue Benadyl and patient placed on Solumedrol 60mg IVPB Q6H -Will need to continue 02 monitoring as well as frequent ENT checks. HIV -Last CD count 215 and being followed at [facility] -Continue home medication Viread and Triumeq F/E/N -IV NS @75mls/hr -Electrolytes wnl -NPO Prophylaxis -Low risk. EAM for DVT -Pepcid for GI Disposition - Patient will be transfered to Med/Surg -Full code -Continue to monitor 02 saturation and worsening angioedema -Patient is trending in the right direction. Should be stable to leave the ICU within a day. -Patient will need an Water Purifier FU Appt. -Patient needs allergy education and access to an EPI pen. Visit type - Emergency Visit Emergency Visit: Yes ED Registration Date: 07/11/18 Care time: The patient presented to the Emergency Department on the above date and was hospitalized for further evaluation of their emergent condition. - New Patient This patient is new to me today: Yes Date on this admission: 07/12/18 - Critical Care Critical Care patient: Yes Total Critical Care Time (in minutes): 36 Critical Care Statement: The care of this patient involved high complexity decision making to prevent further life threatening deterioration of the patient 's condition and/or to evaluate & treat vital organ system(s) failure or risk of failure.
--- NOTE | 2018-07-12 14:37 | PN ---
Teaching Attending Note Name of Resident: Lazaro Boss ATTENDING PHYSICIAN STATEMENT I saw and evaluated the patient. I reviewed the resident's note and discussed the case with the resident. I agree with the resident's findings and plan as documented. SUBJECTIVE: Patient seen and examined in the ICU. Reports feeling much improved. Able to take liquids without difficulty. No CP or SOB. Some residual edema around the right orbit noted. Intake & Output 07/09/18 07/10/18 07/11/18 07/12/18 23:59 23:59 23:59 23:59 Intake Total 150 600 Balance 150 600 Weight 133 lb 6 oz Last Vital Signs Temp Pulse Resp BP Pulse Ox 97.8 F 89 24 H 138/81 96 07/12/18 10:00 07/12/18 12:00 07/12/18 12:00 07/12/18 12:00 07/12/18 09:00 Active Medications Diphenhydramine HCl (Benadryl Injection -) 25 mg IVPB Q6H-IV TRENT Last Admin: 07/12/18 10:00 Dose: 25 mg Sodium Chloride (Normal Saline -) 1,000 mls @ 75 mls/hr IV ASDIR TRENT Last Admin: 07/11/18 23:11 Dose: 75 mls/hr Methylprednisolone Sodium Succinate (Solu-Medrol -) 60 mg IVPUSH Q6H-IV TRENT Last Admin: 07/12/18 10:03 Dose: 60 mg GENERAL: Awake, alert, and fully oriented, in no acute distress. HEAD: Normal with no signs of trauma. EYES: sclera anicteric, conjunctiva clear. residual right robit edema EARS, NOSE, THROAT: Ears normal, nares patent, oropharynx clear without exudates. Moist mucous membranes. No Uvula swelling NECK: Normal range of motion, supple without lymphadenopathy, JVD, or masses. LUNGS: Breath sounds equal, clear to auscultation bilaterally. No wheezes, and no crackles. No accessory muscle use. HEART: Regular rate and rhythm, normal S1 and S2 without murmur, rub or gallop. ABDOMEN: Soft, nontender, not distended, normoactive bowel sounds, no guarding, no rebound, no masses. MUSCULOSKELETAL: No CVA tenderness. UPPER EXTREMITIES: No peripheral edema. LOWER EXTREMITIES: No peripheral edema. NEUROLOGICAL: Cranial nerves II-XII intact. Normal speech. PSYCHIATRIC: Cooperative. Good eye contact. Appropriate mood and affect. SKIN: Warm, dry, normal turgor, no rashes or lesions noted, normal capillary refill. ASSESSMENT/PLAN: Resolving angioedema : etiology unclear / to be determined HIV Consider change to short steroid course for residual edema Allergy / Immunology evaluation as an outpatient D/C planning per Primary: floor or home Dr Fuentes
[2018-07-12 15:37] VITALS: TEMP 98.6
--- NOTE | 2018-07-12 16:57 | PN ---
Progress Note, Physician History of Present Illness: doing well - Current Medication List Current Medications: Active Medications Diphenhydramine HCl (Benadryl Injection -) 25 mg IVPB Q6H-IV TRENT Last Admin: 07/12/18 14:55 Dose: 25 mg Sodium Chloride (Normal Saline -) 1,000 mls @ 75 mls/hr IV ASDIR TRENT Last Admin: 07/11/18 23:11 Dose: 75 mls/hr Methylprednisolone Sodium Succinate (Solu-Medrol -) 60 mg IVPUSH Q6H-IV TRENT Last Admin: 07/12/18 14:53 Dose: 60 mg - Objective Vital Signs: Vital Signs Temperature 98.6 F 07/12/18 14:00 Pulse Rate 98 H 07/12/18 14:00 Respiratory Rate 20 07/12/18 14:00 Blood Pressure 118/74 07/12/18 14:00 O2 Sat by Pulse Oximetry (%) 96 07/12/18 09:00 Constitutional: Yes: No Distress HENT: Yes: Atraumatic Neck: Yes: Supple Cardiovascular: Yes: Regular Rate and Rhythm Respiratory: Yes: CTA Bilaterally Gastrointestinal: Yes: Normal Bowel Sounds Extremities: Yes: WNL Edema: No Peripheral Pulses WNL: Yes Neurological: Yes: Alert, Oriented Labs: CBC, BMP 07/11/18 19:08 07/11/18 19:08 Problem List - Problems (1) Anaphylaxis Assessment/Plan: on iv steroids iv benadryl regular diet now Code(s): T78.2XXA - ANAPHYLACTIC SHOCK, UNSPECIFIED, INITIAL ENCOUNTER (2) AIDS (acquired immune deficiency syndrome) Code(s): B20 - HUMAN IMMUNODEFICIENCY VIRUS [HIV] DISEASE
--- NOTE | 2018-07-12 17:52 | DS ---
Physical Examination Vital Signs: Vital Signs Temperature 98.6 F 07/12/18 14:00 Pulse Rate 111 H 07/12/18 16:00 Respiratory Rate 20 07/12/18 16:00 Blood Pressure 125/76 07/12/18 16:00 O2 Sat by Pulse Oximetry (%) 96 07/12/18 09:00 Constitutional: Yes: No Distress HENT: Yes: Atraumatic Neck: Yes: Supple Cardiovascular: Yes: Regular Rate and Rhythm Respiratory: Yes: CTA Bilaterally Gastrointestinal: Yes: Normal Bowel Sounds Extremities: Yes: WNL Edema: No Peripheral Pulses WNL: Yes Neurological: Yes: Alert, Oriented Labs: CBC, BMP 07/11/18 19:08 07/11/18 19:08 Discharge Summary Reason For Visit: ANAPHYLAXIS Current Active Problems Anaphylaxis (Acute) Condition: Critical - Instructions Diet, Activity, Other Instructions: pt need to see pmd this week she then need to see allergy immunology Referrals: Nhung Kumar MD [Primary Care Provider] - - Home Medications Comprehensive Discharge Medication List: Ambulatory Orders Abacavir/Dolutegravir/Lamivudi [Triumeq Tablet] 1 tab PO DAILY 07/01/18 Albuterol 0.083% Nebulizer Yun [Ventolin 0.083% Nebulizer Soln -] 1 neb PO QID # 1 box 07/01/18 Albuterol Sulfate Inhaler - [Ventolin HFA Inhaler -] 2 inh PO QID #1 inhaler 09/06 Esomeprazole Magnesium 1 cap PO DAILY #30 capsule.dr 07/01/18 Fluticasone/Salmeterol [Advair 250-50 Diskus] 1 inh PO BID #1 blst.w.dev Loratadine [Claritin -] 1 tab PO DAILY #30 tablet 07/01/18 Montelukast Na [Singulair -] 1 tab PO HS #30 tablet 07/01/18 Tenofovir Disoproxil Fumarate [Viread -] 1 tab PO DAILY 07/01/18 eating regular food breathing good will dc home on po benadryl
[2018-07-12 18:15] VITALS: BP 125/79; PULSE 90
== END 2018-07-12 19:45 | disposition home or self-care (01) | DRG 916 ==
LOC: JER 18:26 → JICU 20:34
PROVIDERS: ADMIT Internal Medicine; ATTEND Internal Medicine
DX: T78.2XXA Anaphylactic shock, unspecified, initial encounter (principal); B20 Human immunodeficiency virus [HIV] disease
CPT/HCPCS: 36415; 71045-TC-FY; 80053; 85027; 93005; 93010; 99283-25; J0131; J7030

== ENCOUNTER 2021-03-01 03:25 | Emergency (ER) | payer OTHER ==
[2021-03-01 04:06] VITALS: BMI 26.4
[2021-03-01] MEDS ORDERED: FAMOTIDINE 20 MG/50 ML IVPB 20 MG/50 ML MG IVPB ONE ×2 (04:24→05:03)
[2021-03-01] MEDS ORDERED: MAG HYDROX/AL HYDROX/SIMETH 30 ML UNIT-DOSE CUP PO ONE (04:24)
[2021-03-01] MEDS ORDERED: ALBUTEROL SO4 2.5/IPRATROPIUM 0.5 INH SOL 3 ML VIAL.NEB. NEB ONE ×2 (04:25→04:31)
[2021-03-01] MEDS ORDERED: MAG HYDROX/AL HYDROX/SIMETH 30 ML UNIT-DOSE CUP ONE (04:31)
[2021-03-01] MEDS ORDERED: MAG HYDROX/ALH/SMC/DPHA/LIDO 240 ML MOUTHWASH MM SCH (04:45)
[2021-03-01 05:11] LABS: BASO % 1.4 % (0-2.0); EOS % 13.2 % (0-4.5); HEMATOCRIT 39.3 % (32.4-45.2); LYMPH % 26.1 % (8-40); MCH 29.2 pg (25.7-33.7); MCHC 33.1 g/dl (32.0-36.0); MEAN CELL VOLUME 88.1 fl (80-96); MEAN PLT VOLUME 8.7 fl (7.5-11.1); MONO % 10.2 % (3.8-10.2); NEUT % 49.1 % (42.8-82.8); PLATELET COUNT 211 K/MM3 (134-434); RBC 4.46 M/mm3 (3.60-5.2); RDW 13.3 % (11.6-15.6); WHITE BLOOD COUNT 6.5 K/mm3 (4.0-10.0)
[2021-03-01 05:25] LABS: CHLORIDE 107 mmol/L (98-107); SODIUM 142 mmol/L (136-145)
[2021-03-01 05:27] LABS: ALBUMIN 3.7 g/dl (3.4-5.0); ANION GAP 5 MMOL/L (8-16); BLOOD UREA NITROGEN 15.8 mg/dL (7-18); CALCIUM 9.2 mg/dL (8.5-10.1); CO2 29 mmol/L (21-32)
[2021-03-01 05:31] LABS: CREATININE 0.5 mg/dL (0.55-1.3); SGOT/AST 20 U/L (15-37); SGPT/ALT 31 U/L (13-61)
[2021-03-01 05:32] LABS: BILIRUBIN,TOTAL 0.6 mg/dL (0.2-1); TOT PROT 7.4 g/dl (6.4-8.2)
[2021-03-01 05:33] LABS: ALK PHOS 105 U/L (45-117)
[2021-03-01 06:27] LABS: GLUCOSE,RANDOM 102 mg/dL (74-106)
[2021-03-01 07:25] VITALS: BP 120/69; PULSE 75; TEMP 98.2
== END 2021-03-01 07:10 | disposition home or self-care (01) ==
LOC: JER 03:25
PROC: 3E0F7GC Introduction of Other Therapeutic Substance into Respiratory Tract, Via Natural or Artificial Opening (ICD-10-PCS; principal; 2021-03-01)
PROC: 3E033GC Introduction of Other Therapeutic Substance into Peripheral Vein, Percutaneous Approach (ICD-10-PCS; 2021-03-01)
DX: J02.9 Acute pharyngitis, unspecified (principal); J45.21 Mild intermittent asthma with (acute) exacerbation; K21.9 Gastro-esophageal reflux disease without esophagitis
CPT/HCPCS: 36415; 71045-TC-FY; 80053; 82550; 84484; 85025; 93005; 93010; 99285-25; C9803; U0003; U0005

== ENCOUNTER 2021-03-02 05:35 | Emergency (ER) | payer OTHER ==
[2021-03-02 05:56] VITALS: BMI 26.4
[2021-03-02] MEDS ORDERED: FLUTICASONE PROP 0.05% 16 GM NASAL SPRAY NS ONE (06:03)
[2021-03-02] MEDS ORDERED: DEXAMETHASONE 4 MG TABLET (FP) PO ONE (06:04)
[2021-03-02] MEDS ORDERED: DEXAMETHASONE 4 MG TABLET (FP) ONE (06:09)
[2021-03-02] MEDS: ALBUTEROL SO4 2.5/IPRATROPIUM 0.5 INH SOL 3 ML VIAL.NEB. NEB SCH ×2 (06:16→06:57)
[2021-03-02 07:40] VITALS: BP 107/75; PULSE 101; TEMP 98
== END 2021-03-02 07:37 | disposition home or self-care (01) ==
LOC: JER 05:35
PROC: 3E0F7GC Introduction of Other Therapeutic Substance into Respiratory Tract, Via Natural or Artificial Opening (ICD-10-PCS; principal; 2021-03-02)
DX: J45.901 Unspecified asthma with (acute) exacerbation (principal)
CPT/HCPCS: 99284-25

== ENCOUNTER 2021-10-02 10:51 | Emergency (ER) | payer OTHER ==
[2021-10-02 11:26] VITALS: BMI 26.4
[2021-10-02] MEDS ORDERED: SOTROVIMAB 500 MG in SODIUM CHLORIDE 100 ML IVPB ONE (12:01)
[2021-10-02 13:06] VITALS: TEMP 98.2
[2021-10-02 14:10] VITALS: BP 133/70; PULSE 74
== END 2021-10-02 14:45 | disposition home or self-care (01) ==
LOC: JER 10:51 → JCOVINFU 10:51
DX: U07.1 COVID-19 (principal)
CPT/HCPCS: 99284-25; M0247; Q0247

== ENCOUNTER 2022-12-14 12:05 | Observation (INO) | payer OTHER ==
[2022-12-14] MEDS ORDERED: methylPREDNISolone NA SUCC 125 MG/2 ML VIAL IVPUSH ONE (13:26)
[2022-12-14] MEDS ORDERED: ACETAMINOPHEN 1000 MG/100 ML BAG IVPB ONE (13:26)
[2022-12-14] MEDS ORDERED: MAGNESIUM SULF 50% (8.12 MEQ/2 ML-1 GM VIAL) IVPB ONE (13:26)
[2022-12-14] MEDS ORDERED: MAGNESIUM SULFATE IN WATER 2 GM/50 ML IVPB IVPB ONE (13:40)
[2022-12-14] MEDS ORDERED: ACETAMINOPHEN INJECTION 100 ML IVPB ONE (13:40)
[2022-12-14] MEDS ORDERED: methylPREDNISolone NA SUCC 125 MG/2 ML VIAL ONE ×2 (13:40→13:44)
[2022-12-14] MEDS: ALBUTEROL SO4 2.5/IPRATROPIUM 0.5 INH SOL 3 ML VIAL.NEB. NEB SCH ×6 (14:01→17:56)
[2022-12-14 14:18] LABS: BASO % 1.4 % (0-2.0); EOS % 9.9 % (0-4.5); HEMATOCRIT 41.3 % (32.4-45.2); LYMPH % 30.9 % (8-40); MCH 29.4 pg (25.7-33.7); MCHC 33.8 g/dl (32.0-36.0); MEAN CELL VOLUME 86.9 fl (80-96); MONO % 11.8 % (3.8-10.2); PLATELET COUNT 310 10^3/uL (134-434); RBC 4.75 M/mm3 (3.60-5.2); RDW 13.9 % (11.6-15.6); WHITE BLOOD COUNT 6.6 K/mm3 (4.0-10.0)
[2022-12-14 14:20] LABS: INR 0.97 (0.83-1.09); PROTHROMBIN TIME (PATIENT) 11.3 SEC (9.7-13.0)
[2022-12-14 14:23] LABS: ACTIVATED PTT 28.4 SECONDS (25.2-36.5)
[2022-12-14 14:43] LABS: ALBUMIN 3.6 g/dl (3.4-5.0); BLOOD UREA NITROGEN 14.2 mg/dL (7-18); CALCIUM 8.9 mg/dL (8.5-10.1); MAGNESIUM 2.2 mg/dL (1.8-2.4)
[2022-12-14 14:46] LABS: CREATININE 0.7 mg/dL (0.55-1.3)
[2022-12-14 14:48] LABS: BILIRUBIN,TOTAL 0.4 mg/dL (0.2-1)
[2022-12-14 14:50] LABS: TOT PROT 7.6 g/dl (6.4-8.2)
[2022-12-14] MEDS ORDERED: ALBUTEROL SO4 2.5/IPRATROPIUM 0.5 INH SOL 3 ML VIAL.NEB. NEB ONE ×2 (15:46→16:39)
[2022-12-14] MEDS ORDERED: ALBUTEROL SO4 2.5/IPRATROPIUM 0.5 INH SOL 3 ML VIAL.NEB. NEB PRN (17:17)
[2022-12-14] MEDS ORDERED: methylPREDNISolone NA SUCC 40 MG/1 ML VIAL ONE (17:38)
[2022-12-14] MEDS: methylPREDNISolone NA SUCC 40 MG/1 ML VIAL IVPUSH SCH (17:44)
[2022-12-15] MEDS: HEPARIN NA (PORCINE) 5,000 UNITS/ML 1ML VIAL SQ SCH ×3 (00:19→21:30)
[2022-12-15] MEDS: DOXYCYCLINE INJECTION 100 MG in DEXTROSE 5%-WATER 100 ML IVPB SCH ×3 (00:20→21:31)
[2022-12-15] MEDS ORDERED: DOXYCYCLINE HYCLATE 100 MG VIAL ONE (00:26)
[2022-12-15] MEDS ORDERED: ACETAMINOPHEN 1000 MG/100 ML BAG IVPB ONE (00:42)
[2022-12-15 04:19] VITALS: BMI 26.6
[2022-12-15] MEDS: methylPREDNISolone NA SUCC 40 MG/1 ML VIAL IVPUSH SCH ×3 (04:38→17:38)
[2022-12-15 10:03] LABS: BASO % 0.1 % (0-2.0); HEMATOCRIT 36.1 % (32.4-45.2); HEMOGLOBIN 12.6 GM/dL (10.7-15.3); LYMPH % 12.8 % (8-40); MCH 30.2 pg (25.7-33.7); MEAN CELL VOLUME 86.4 fl (80-96); MEAN PLT VOLUME 8.6 fl (7.5-11.1); MONO % 2.4 % (3.8-10.2); NEUT % 84.7 % (42.8-82.8); PLATELET COUNT 312 10^3/uL (134-434); RBC 4.18 M/mm3 (3.60-5.2); RDW 13.5 % (11.6-15.6); WHITE BLOOD COUNT 8.6 K/mm3 (4.0-10.0)
[2022-12-15] MEDS: CEFTRIAXONE 1 GM in DEXTROSE 5%-WATER - 50 ML IVPB SCH (10:04)
[2022-12-15 10:21] LABS: CALCIUM 8.5 mg/dL (8.5-10.1)
[2022-12-15 10:22] LABS: BLOOD UREA NITROGEN 23.9 mg/dL (7-18)
[2022-12-15 10:27] LABS: CREATININE 0.8 mg/dL (0.55-1.3)
[2022-12-15] MEDS: ALBUTEROL SO4 2.5/IPRATROPIUM 0.5 INH SOL 3 ML VIAL.NEB. NEB SCH ×2 (13:30→19:53)
[2022-12-15] MEDS: ABACAVIR/DOLUTEGRAVIR/LAMIVUDI (TRIUMEQ) TABLET PO SCH ×2 (17:02→17:38)
[2022-12-15] MEDS ORDERED: MONTELUKAST NA 10 MG TABLET PO SCH (22:00)
[2022-12-15] MEDS ORDERED: TENOFOVIR DISOPROXIL FUMARATE 300 MG TABLET PO SCH (22:00)
[2022-12-16] MEDS: methylPREDNISolone NA SUCC 40 MG/1 ML VIAL IVPUSH SCH ×2 (01:32→09:12)
[2022-12-16 03:59] VITALS: RESP 18
[2022-12-16] MEDS: ALBUTEROL SO4 2.5/IPRATROPIUM 0.5 INH SOL 3 ML VIAL.NEB. NEB SCH ×2 (07:40→14:45)
[2022-12-16 08:47] LABS: HEMATOCRIT 37.5 % (32.4-45.2); MCH 29.9 pg (25.7-33.7); MCHC 34.6 g/dl (32.0-36.0); MEAN CELL VOLUME 86.4 fl (80-96); MEAN PLT VOLUME 8.1 fl (7.5-11.1); PLATELET COUNT 350 10^3/uL (134-434); RBC 4.34 M/mm3 (3.60-5.2); RDW 13.9 % (11.6-15.6); WHITE BLOOD COUNT 10.9 K/mm3 (4.0-10.0)
[2022-12-16] MEDS: HEPARIN NA (PORCINE) 5,000 UNITS/ML 1ML VIAL SQ SCH (09:12)
[2022-12-16] MEDS: ABACAVIR/DOLUTEGRAVIR/LAMIVUDI (TRIUMEQ) TABLET PO SCH ×2 (09:13→11:18)
[2022-12-16] MEDS: CEFTRIAXONE 1 GM in DEXTROSE 5%-WATER - 50 ML IVPB SCH (09:15)
[2022-12-16] MEDS: DOXYCYCLINE INJECTION 100 MG in DEXTROSE 5%-WATER 100 ML IVPB SCH (09:15)
[2022-12-16] MEDS ORDERED: cefTRIAXone SODIUM 1 GM VIAL ONE (09:15)
[2022-12-16 09:26] LABS: ALBUMIN 3.6 g/dl (3.4-5.0); BLOOD UREA NITROGEN 19.4 mg/dL (7-18); MAGNESIUM 2.2 mg/dL (1.8-2.4)
[2022-12-16 09:29] LABS: CREATININE 0.8 mg/dL (0.55-1.3); PHOSPHOROUS 4.8 mg/dL (2.5-4.9)
[2022-12-16 09:30] LABS: BILIRUBIN,TOTAL 0.4 mg/dL (0.2-1); TOT PROT 7.6 g/dl (6.4-8.2)
[2022-12-16] MEDS ORDERED: PANTOPRAZOLE 40 MG TABLET PO SCH (10:00)
[2022-12-16 14:21] VITALS: BP 121/72; PULSE 93; TEMP 98.1
[2022-12-16] MEDS ORDERED: ABACAVIR/DOLUTEGRAVIR/LAMIVUDI (TRIUMEQ) TABLET PO SCH (22:00)
== END 2022-12-16 18:13 | disposition home or self-care (01) ==
LOC: JER 12:05 → JERFT 12:05 → JERBED 16:27 → J6S 12-15 04:05
PROVIDERS: ADMIT Internal Medicine; ATTEND Internal Medicine
PROC: 3E033NZ Introduction of Analgesics, Hypnotics, Sedatives into Peripheral Vein, Percutaneous Approach (ICD-10-PCS; principal; 2022-12-14)
PROC: 3E0F7GC Introduction of Other Therapeutic Substance into Respiratory Tract, Via Natural or Artificial Opening (ICD-10-PCS; 2022-12-14)
PROC: 3E03329 Introduction of Other Anti-infective into Peripheral Vein, Percutaneous Approach (ICD-10-PCS; 2022-12-14)
PROC: 3E023GC Introduction of Other Therapeutic Substance into Muscle, Percutaneous Approach (ICD-10-PCS; 2022-12-14)
DX: B20 Human immunodeficiency virus [HIV] disease (principal); J45.901 Unspecified asthma with (acute) exacerbation; R91.8 Other nonspecific abnormal finding of lung field; R06.02 Shortness of breath
CPT/HCPCS: 0241U-QW; 36415; 71275-TC; 80048; 80053; 83735; 84100; 84484; 84703; 85025; 85027; 85610; 85730; 87070; 87205; 93005; 93010; 94640; 96365; 96367; 96375; 96376; 99285-25; G0378; J1644; Q9967

== ENCOUNTER 2023-01-13 13:06 | Emergency (ER) | payer OTHER ==
[2023-01-13 13:15] VITALS: BP 142/83; PULSE 79; RESP 20; TEMP 98; BMI 27.8
[2023-01-13] MEDS ORDERED: methylPREDNISolone NA SUCC 125 MG/2 ML VIAL IVPUSH ONE (13:58)
[2023-01-13] MEDS ORDERED: MAGNESIUM SULF 50% (8.12 MEQ/2 ML-1 GM VIAL) IVPB ONE (13:59)
[2023-01-13] MEDS ORDERED: LORATADINE 10 MG TABLET PO ONE (14:02)
[2023-01-13] MEDS ORDERED: ACETAMINOPHEN 1000 MG/100 ML BAG IVPB ONE (14:04)
[2023-01-13] MEDS ORDERED: ALBUTEROL SO4 2.5/IPRATROPIUM 0.5 INH SOL 3 ML VIAL.NEB. NEB ONE (14:09)
[2023-01-13] MEDS ORDERED: ACETAMINOPHEN INJECTION 100 ML IVPB ONE (14:10)
[2023-01-13] MEDS ORDERED: methylPREDNISolone NA SUCC 125 MG/2 ML VIAL ONE (14:10)
[2023-01-13] MEDS ORDERED: MAGNESIUM SULFATE IN WATER 2 GM/50 ML IVPB IVPB ONE (14:10)
[2023-01-13] MEDS ORDERED: LORATADINE 10 MG TABLET ONE (14:10)
[2023-01-13] MEDS: ALBUTEROL SO4 2.5/IPRATROPIUM 0.5 INH SOL 3 ML VIAL.NEB. NEB SCH ×4 (14:15→14:53)
== END 2023-01-13 16:50 | disposition home or self-care (01) ==
LOC: JER 13:06
PROC: 3E033NZ Introduction of Analgesics, Hypnotics, Sedatives into Peripheral Vein, Percutaneous Approach (ICD-10-PCS; principal; 2023-01-13)
PROC: 3E033GC Introduction of Other Therapeutic Substance into Peripheral Vein, Percutaneous Approach (ICD-10-PCS; 2023-01-13)
PROC: 3E033GC Introduction of Other Therapeutic Substance into Peripheral Vein, Percutaneous Approach (ICD-10-PCS; 2023-01-13)
DX: J45.998 Other asthma (principal); R06.02 Shortness of breath; R09.81 Nasal congestion; R53.83 Other fatigue; M79.10 Myalgia, unspecified site; Z20.822 Contact with and (suspected) exposure to COVID-19
CPT/HCPCS: 0241U-QW; 71045-TC-FY; 99284-25

== ENCOUNTER 2023-01-28 21:58 | Inpatient (IN) | payer OTHER ==
[2023-01-28] MEDS ORDERED: MAGNESIUM SULFATE IN WATER 2 GM/50 ML IVPB IVPB ONE (22:15)
[2023-01-28] MEDS ORDERED: methylPREDNISolone NA SUCC 125 MG/2 ML VIAL ONE ×3 (22:15→23:09)
[2023-01-28] MEDS ORDERED: MAGNESIUM SULF 50% (8.12 MEQ/2 ML-1 GM VIAL) IVPB ONE ×2 (22:15→23:09)
[2023-01-28] MEDS ORDERED: ALBUTEROL SO4 2.5/IPRATROPIUM 0.5 INH SOL 3 ML VIAL.NEB. NEB ONE ×5 (22:15→23:11)
[2023-01-28] MEDS ORDERED: methylPREDNISolone NA SUCC 125 MG/2 ML VIAL IVPUSH ONE (22:45)
[2023-01-28 23:17] LABS: EOS % 12.5 % (0-4.5); HEMATOCRIT 39.2 % (32.4-45.2); HEMOGLOBIN 13.4 GM/dL (10.7-15.3); LYMPH % 22.5 % (8-40); MCH 29.9 pg (25.7-33.7); MCHC 34.2 g/dl (32.0-36.0); MEAN CELL VOLUME 87.4 fl (80-96); MEAN PLT VOLUME 9.1 fl (7.5-11.1); MONO % 8.4 % (3.8-10.2); NEUT % 55.6 % (42.8-82.8); PLATELET COUNT 210 10^3/uL (134-434); RBC 4.49 M/mm3 (3.60-5.2); RDW 14.1 % (11.6-15.6); WHITE BLOOD COUNT 10.5 K/mm3 (4.0-10.0)
[2023-01-28 23:34] LABS: POTASSIUM 4.2 mmol/L (3.5-5.1)
[2023-01-28 23:36] LABS: CALCIUM 8.7 mg/dL (8.5-10.1)
[2023-01-28 23:37] LABS: ALBUMIN 3.6 g/dl (3.4-5.0); MAGNESIUM 2.1 mg/dL (1.8-2.4)
[2023-01-28 23:39] LABS: CREATININE 0.8 mg/dL (0.55-1.3)
[2023-01-28 23:41] LABS: BILIRUBIN,TOTAL 0.4 mg/dL (0.2-1); TOT PROT 7.2 g/dl (6.4-8.2)
[2023-01-29] MEDS ORDERED: ALBUTEROL SO4 0.083% IH SOL 2.5 MG/3 ML VIAL.NEB. NEB ONE ×3 (00:04→00:06)
[2023-01-29] MEDS ORDERED: ALBUTEROL SO4 HFA INHALER IH PRN (01:44)
[2023-01-29] MEDS: methylPREDNISolone NA SUCC 40 MG/1 ML VIAL IVPUSH SCH ×3 (02:19→21:01)
[2023-01-29 05:38] VITALS: BMI 27.5
[2023-01-29] MEDS: ALBUTEROL SO4 2.5/IPRATROPIUM 0.5 INH SOL 3 ML VIAL.NEB. NEB SCH ×4 (08:00→21:24)
[2023-01-29] MEDS: ALBUTEROL SO4 0.083% IH SOL 2.5 MG/3 ML VIAL.NEB. NEB SCH ×4 (08:46→21:24)
[2023-01-29 08:57] LABS: BASO % 0.7 % (0-2.0); EOS % 0.1 % (0-4.5); HEMATOCRIT 39.3 % (32.4-45.2); HEMOGLOBIN 13.3 GM/dL (10.7-15.3); LYMPH % 15.3 % (8-40); MCH 29.6 pg (25.7-33.7); MCHC 33.8 g/dl (32.0-36.0); MEAN CELL VOLUME 87.5 fl (80-96); MEAN PLT VOLUME 9.1 fl (7.5-11.1); MONO % 0.9 % (3.8-10.2); PLATELET COUNT 219 10^3/uL (134-434); RBC 4.49 M/mm3 (3.60-5.2); WHITE BLOOD COUNT 5.5 K/mm3 (4.0-10.0)
[2023-01-29 09:16] LABS: POTASSIUM 4.6 mmol/L (3.5-5.1)
[2023-01-29 09:24] LABS: ALBUMIN 3.6 g/dl (3.4-5.0); BLOOD UREA NITROGEN 18.8 mg/dL (7-18); MAGNESIUM 2.4 mg/dL (1.8-2.4)
[2023-01-29 09:25] LABS: CALCIUM 9.2 mg/dL (8.5-10.1); PHOSPHOROUS 3.1 mg/dL (2.5-4.9)
[2023-01-29 09:27] LABS: BILIRUBIN,TOTAL 0.5 mg/dL (0.2-1); CREATININE 0.7 mg/dL (0.55-1.3); TOT PROT 7.5 g/dl (6.4-8.2)
[2023-01-29] MEDS: LORATADINE 10 MG TABLET PO SCH (09:27)
[2023-01-29] MEDS: ENOXAPARIN NA (PORCINE) 40 MG/0.4 ML DISP.SYRIN SQ SCH (09:27)
[2023-01-29] MEDS: FAMOTIDINE 20 MG TABLET PO SCH (09:28)
[2023-01-29] MEDS ORDERED: BUDESONIDE/FORMETEROL FUMARATE 160/4.5 mcg INHALER IH SCH (10:00)
[2023-01-29] MEDS: TIOTROPIUM BROMIDE 2.5 MCG (SPIRIVA) RESPIMAT INHALER IH SCH (17:22)
[2023-01-29] MEDS ORDERED: ALBUTEROL SO4 2.5/IPRATROPIUM 0.5 INH SOL 3 ML VIAL.NEB. NEB PRN (21:26)
[2023-01-29] MEDS: BUDESONIDE/FORMETEROL FUMARATE 160/4.5 mcg INHALER IH SCH (21:50)
[2023-01-29] MEDS: MONTELUKAST NA 10 MG TABLET PO SCH (21:50)
[2023-01-29] MEDS: ABACAVIR/DOLUTEGRAVIR/LAMIVUDI (TRIUMEQ) TABLET PO SCH (21:56)
[2023-01-29] MEDS: TENOFOVIR DISOPROXIL FUMARATE 300 MG TABLET PO SCH (21:57)
[2023-01-30] MEDS: ACETAMINOPHEN 325 MG TABLET (FP) PO PRN ×2 (01:59→23:57)
[2023-01-30] MEDS: methylPREDNISolone NA SUCC 40 MG/1 ML VIAL IVPUSH SCH ×4 (02:01→21:06)
[2023-01-30 08:51] LABS: BASO % 0.1 % (0-2.0); HEMATOCRIT 36.5 % (32.4-45.2); HEMOGLOBIN 12.5 GM/dL (10.7-15.3); LYMPH % 8.4 % (8-40); MCH 30.1 pg (25.7-33.7); MCHC 34.1 g/dl (32.0-36.0); MEAN CELL VOLUME 88.2 fl (80-96); MEAN PLT VOLUME 9.8 fl (7.5-11.1); MONO % 1.6 % (3.8-10.2); NEUT % 89.9 % (42.8-82.8); PLATELET COUNT 201 10^3/uL (134-434); RBC 4.14 M/mm3 (3.60-5.2); RDW 13.8 % (11.6-15.6); WHITE BLOOD COUNT 11.1 K/mm3 (4.0-10.0)
[2023-01-30 09:03] LABS: POTASSIUM 4.4 mmol/L (3.5-5.1)
[2023-01-30 09:05] LABS: CALCIUM 8.7 mg/dL (8.5-10.1)
[2023-01-30 09:06] LABS: ALBUMIN 3.6 g/dl (3.4-5.0); BLOOD UREA NITROGEN 19.6 mg/dL (7-18); MAGNESIUM 2.4 mg/dL (1.8-2.4)
[2023-01-30 09:09] LABS: CREATININE 0.7 mg/dL (0.55-1.3)
[2023-01-30 09:10] LABS: BILIRUBIN,TOTAL 0.3 mg/dL (0.2-1)
[2023-01-30] MEDS: ENOXAPARIN NA (PORCINE) 40 MG/0.4 ML DISP.SYRIN SQ SCH (09:39)
[2023-01-30] MEDS: LORATADINE 10 MG TABLET PO SCH (09:40)
[2023-01-30] MEDS: BUDESONIDE/FORMETEROL FUMARATE 160/4.5 mcg INHALER IH SCH ×2 (09:40→21:07)
[2023-01-30] MEDS: FAMOTIDINE 20 MG TABLET PO SCH (09:40)
[2023-01-30] MEDS: TIOTROPIUM BROMIDE 2.5 MCG (SPIRIVA) RESPIMAT INHALER IH SCH (09:41)
[2023-01-30] MEDS ORDERED: ALBUTEROL SO4 2.5/IPRATROPIUM 0.5 INH SOL 3 ML VIAL.NEB. NEB SCH ×2 (11:15→11:27)
[2023-01-30] MEDS: ALBUTEROL SO4 0.083% IH SOL 2.5 MG/3 ML VIAL.NEB. NEB PRN ×2 (16:17→21:13)
[2023-01-30] MEDS: MONTELUKAST NA 10 MG TABLET PO SCH (21:06)
[2023-01-30] MEDS: DOCUSATE SODIUM 100 MG CAPSULE (FP) PO SCH (21:13)
[2023-01-30] MEDS: ABACAVIR/DOLUTEGRAVIR/LAMIVUDI (TRIUMEQ) TABLET PO SCH (21:20)
[2023-01-30] MEDS: TENOFOVIR DISOPROXIL FUMARATE 300 MG TABLET PO SCH (21:20)
[2023-01-31] MEDS: methylPREDNISolone NA SUCC 40 MG/1 ML VIAL IVPUSH SCH ×4 (03:43→21:35)
[2023-01-31] MEDS: ALBUTEROL SO4 0.083% IH SOL 2.5 MG/3 ML VIAL.NEB. NEB PRN ×3 (07:22→19:37)
[2023-01-31] MEDS: FAMOTIDINE 20 MG TABLET PO SCH (10:04)
[2023-01-31] MEDS: DOCUSATE SODIUM 100 MG CAPSULE (FP) PO SCH ×2 (10:05→21:35)
[2023-01-31] MEDS: LORATADINE 10 MG TABLET PO SCH (10:05)
[2023-01-31] MEDS: TIOTROPIUM BROMIDE 2.5 MCG (SPIRIVA) RESPIMAT INHALER IH SCH (10:06)
[2023-01-31] MEDS: ENOXAPARIN NA (PORCINE) 40 MG/0.4 ML DISP.SYRIN SQ SCH (10:06)
[2023-01-31] MEDS: BUDESONIDE/FORMETEROL FUMARATE 160/4.5 mcg INHALER IH SCH ×2 (10:06→21:37)
[2023-01-31 10:49] LABS: BASO % 0.1 % (0-2.0); HEMATOCRIT 37.3 % (32.4-45.2); HEMOGLOBIN 12.7 GM/dL (10.7-15.3); LYMPH % 6.2 % (8-40); MCH 29.8 pg (25.7-33.7); MCHC 34.1 g/dl (32.0-36.0); MEAN CELL VOLUME 87.4 fl (80-96); MEAN PLT VOLUME 9.6 fl (7.5-11.1); NEUT % 90.7 % (42.8-82.8); PLATELET COUNT 199 10^3/uL (134-434); RBC 4.27 M/mm3 (3.60-5.2); RDW 14.3 % (11.6-15.6); WHITE BLOOD COUNT 13.9 K/mm3 (4.0-10.0)
[2023-01-31 11:05] LABS: POTASSIUM 3.6 mmol/L (3.5-5.1)
[2023-01-31 11:09] LABS: ALBUMIN 3.6 g/dl (3.4-5.0); CALCIUM 8.6 mg/dL (8.5-10.1)
[2023-01-31 11:10] LABS: BLOOD UREA NITROGEN 17.8 mg/dL (7-18); MAGNESIUM 2.3 mg/dL (1.8-2.4)
[2023-01-31 11:12] LABS: CREATININE 0.7 mg/dL (0.55-1.3)
[2023-01-31 11:14] LABS: BILIRUBIN,TOTAL 0.4 mg/dL (0.2-1); TOT PROT 6.9 g/dl (6.4-8.2)
[2023-01-31] MEDS: MONTELUKAST NA 10 MG TABLET PO SCH (21:35)
[2023-01-31] MEDS: ABACAVIR/DOLUTEGRAVIR/LAMIVUDI (TRIUMEQ) TABLET PO SCH (21:38)
[2023-01-31] MEDS: TENOFOVIR DISOPROXIL FUMARATE 300 MG TABLET PO SCH (21:39)
[2023-02-01] MEDS: ALBUTEROL SO4 0.083% IH SOL 2.5 MG/3 ML VIAL.NEB. NEB PRN ×2 (00:36→07:30)
[2023-02-01] MEDS: methylPREDNISolone NA SUCC 40 MG/1 ML VIAL IVPUSH SCH ×4 (03:08→22:44)
[2023-02-01 09:02] LABS: BASO % 0.1 % (0-2.0); HEMOGLOBIN 12.4 GM/dL (10.7-15.3); LYMPH % 14.5 % (8-40); MCH 30.2 pg (25.7-33.7); MCHC 34.5 g/dl (32.0-36.0); MEAN CELL VOLUME 87.7 fl (80-96); MEAN PLT VOLUME 9.2 fl (7.5-11.1); NEUT % 77.4 % (42.8-82.8); PLATELET COUNT 185 10^3/uL (134-434); RDW 14.6 % (11.6-15.6); WHITE BLOOD COUNT 11.7 K/mm3 (4.0-10.0)
[2023-02-01 09:10] LABS: POTASSIUM 4.3 mmol/L (3.5-5.1)
[2023-02-01 09:12] LABS: ALBUMIN 3.4 g/dl (3.4-5.0); BLOOD UREA NITROGEN 22.2 mg/dL (7-18); CALCIUM 8.3 mg/dL (8.5-10.1); MAGNESIUM 2.2 mg/dL (1.8-2.4)
[2023-02-01 09:15] LABS: CREATININE 0.7 mg/dL (0.55-1.3)
[2023-02-01 09:17] LABS: BILIRUBIN,TOTAL 0.3 mg/dL (0.2-1); TOT PROT 6.6 g/dl (6.4-8.2)
[2023-02-01] MEDS: FAMOTIDINE 20 MG TABLET PO SCH (10:11)
[2023-02-01] MEDS: DOCUSATE SODIUM 100 MG CAPSULE (FP) PO SCH ×2 (10:12→22:28)
[2023-02-01] MEDS: ENOXAPARIN NA (PORCINE) 40 MG/0.4 ML DISP.SYRIN SQ SCH (10:12)
[2023-02-01] MEDS: LORATADINE 10 MG TABLET PO SCH (10:12)
[2023-02-01] MEDS: BUDESONIDE/FORMETEROL FUMARATE 160/4.5 mcg INHALER IH SCH ×2 (10:53→22:29)
[2023-02-01] MEDS: TIOTROPIUM BROMIDE 2.5 MCG (SPIRIVA) RESPIMAT INHALER IH SCH (10:53)
[2023-02-01] MEDS ORDERED: ALBUTEROL SO4 HFA INHALER IH PRN (11:02)
[2023-02-01] MEDS ORDERED: ALBUTEROL SO4 0.083% IH SOL 2.5 MG/3 ML VIAL.NEB. NEB PRN (11:03)
[2023-02-01] MEDS: ALBUTEROL SO4 0.083% IH SOL 2.5 MG/3 ML VIAL.NEB. NEB SCH ×3 (11:29→20:17)
[2023-02-01] MEDS: ACETAMINOPHEN 325 MG TABLET (FP) PO PRN (20:46)
[2023-02-01] MEDS: ABACAVIR/DOLUTEGRAVIR/LAMIVUDI (TRIUMEQ) TABLET PO SCH (22:28)
[2023-02-01] MEDS: MONTELUKAST NA 10 MG TABLET PO SCH (22:28)
[2023-02-01] MEDS: TENOFOVIR DISOPROXIL FUMARATE 300 MG TABLET PO SCH (22:28)
[2023-02-01] MEDS: methylPREDNISolone NA SUCC 125 MG/2 ML VIAL IVPUSH SCH (22:29)
[2023-02-02] MEDS: methylPREDNISolone NA SUCC 125 MG/2 ML VIAL IVPUSH SCH ×2 (02:44→11:39)
[2023-02-02] MEDS: ALBUTEROL SO4 0.083% IH SOL 2.5 MG/3 ML VIAL.NEB. NEB SCH ×4 (07:40→20:00)
[2023-02-02] MEDS ORDERED: methylPREDNISolone NA SUCC 125 MG/2 ML VIAL IVPUSH SCH (09:32)
[2023-02-02] MEDS: DOCUSATE SODIUM 100 MG CAPSULE (FP) PO SCH ×2 (10:10→21:40)
[2023-02-02] MEDS: FAMOTIDINE 20 MG TABLET PO SCH (10:10)
[2023-02-02] MEDS: LORATADINE 10 MG TABLET PO SCH (10:11)
[2023-02-02] MEDS: ENOXAPARIN NA (PORCINE) 40 MG/0.4 ML DISP.SYRIN SQ SCH ×2 (10:12→10:21)
[2023-02-02] MEDS: TIOTROPIUM BROMIDE 2.5 MCG (SPIRIVA) RESPIMAT INHALER IH SCH (10:15)
[2023-02-02] MEDS ORDERED: diphenhydrAMINE HCL 25 MG CAPSULE (FP) PO PRN (11:18)
[2023-02-02] MEDS: BUDESONIDE/FORMETEROL FUMARATE 160/4.5 mcg INHALER IH SCH ×2 (11:36→21:42)
[2023-02-02] MEDS: methylPREDNISolone NA SUCC 40 MG/1 ML VIAL IVPUSH SCH ×2 (11:36→18:05)
[2023-02-02] MEDS: ABACAVIR/DOLUTEGRAVIR/LAMIVUDI (TRIUMEQ) TABLET PO SCH (21:40)
[2023-02-02] MEDS: TENOFOVIR DISOPROXIL FUMARATE 300 MG TABLET PO SCH (21:40)
[2023-02-02] MEDS: MONTELUKAST NA 10 MG TABLET PO SCH (21:40)
[2023-02-02] MEDS ORDERED: MELATONIN 5 MG TABLETS PO SCH (22:00)
[2023-02-03] MEDS: ALBUTEROL SO4 0.083% IH SOL 2.5 MG/3 ML VIAL.NEB. NEB SCH ×3 (07:37→15:12)
[2023-02-03] MEDS: DOCUSATE SODIUM 100 MG CAPSULE (FP) PO SCH (09:29)
[2023-02-03] MEDS: FAMOTIDINE 20 MG TABLET PO SCH (09:29)
[2023-02-03] MEDS: LORATADINE 10 MG TABLET PO SCH (09:29)
[2023-02-03] MEDS: ENOXAPARIN NA (PORCINE) 40 MG/0.4 ML DISP.SYRIN SQ SCH ×2 (09:29→10:40)
[2023-02-03] MEDS ORDERED: predniSONE 20 MG TABLET (UD) PO SCH (10:00)
[2023-02-03] MEDS: TIOTROPIUM BROMIDE 2.5 MCG (SPIRIVA) RESPIMAT INHALER IH SCH (10:37)
[2023-02-03] MEDS: BUDESONIDE/FORMETEROL FUMARATE 160/4.5 mcg INHALER IH SCH (10:37)
[2023-02-03 15:42] VITALS: BP 135/82; PULSE 81; RESP 20; TEMP 98
== END 2023-02-03 16:51 | disposition home or self-care (01) | DRG 141 ==
LOC: JER 21:58 → JERBED 01-29 01:13 → J8W 01-29 04:27 → OBSVTOIN 01-29 13:28 → J8W 01-30 18:38
PROVIDERS: ADMIT Internal Medicine; ATTEND Nurse Practitioner Acute Care
DX: J45.51 Severe persistent asthma with (acute) exacerbation (principal); B20 Human immunodeficiency virus [HIV] disease; J44.9 Chronic obstructive pulmonary disease, unspecified; K21.9 Gastro-esophageal reflux disease without esophagitis; D72.18 Eosinophilia in diseases classified elsewhere; R09.02 Hypoxemia
CPT/HCPCS: 0241U-QW; 36415; 71045-TC-FY; 80053; 83735; 84100; 84484; 85025; 87070; 87205; 93005; 93010; 94010; 94640; 94761; 97116-GP; 97161-GP; 99285-25; G0378

== ENCOUNTER 2023-04-01 15:20 | Emergency (ER) | payer OTHER ==
[2023-04-01 15:33] VITALS: BP 130/76; PULSE 84; TEMP 99; BMI 28.3
[2023-04-01] MEDS ORDERED: ALBUTEROL SO4 2.5/IPRATROPIUM 0.5 INH SOL 3 ML VIAL.NEB. NEB ONE (15:37)
[2023-04-01] MEDS ORDERED: DEXAMETHASONE SOD PHOSPHATE 10 MG/1 ML VIAL IVPUSH ONE (16:05)
[2023-04-01] MEDS: ALBUTEROL SO4 2.5/IPRATROPIUM 0.5 INH SOL 3 ML VIAL.NEB. NEB SCH ×2 (16:11→16:14)
[2023-04-01] MEDS ORDERED: DEXAMETHASONE SOD PHOSPHATE 10 MG/1 ML VIAL ONE (16:13)
[2023-04-01 16:33] LABS: BASO % 1.1 % (0-2.0); EOS % 13.9 % (0-4.5); HEMATOCRIT 41.4 % (32.4-45.2); HEMOGLOBIN 13.8 GM/dL (10.7-15.3); LYMPH % 42.4 % (8-40); MCH 29.3 pg (25.7-33.7); MCHC 33.2 g/dl (32.0-36.0); MEAN CELL VOLUME 88.4 fl (80-96); MEAN PLT VOLUME 9.8 fl (7.5-11.1); MONO % 7.7 % (3.8-10.2); NEUT % 34.9 % (42.8-82.8); PLATELET COUNT 234 10^3/uL (134-434); RBC 4.69 M/mm3 (3.60-5.2); RDW 13.6 % (11.6-15.6); WHITE BLOOD COUNT 8.5 K/mm3 (4.0-10.0)
[2023-04-01 17:04] LABS: POTASSIUM 3.9 mmol/L (3.5-5.1)
[2023-04-01 17:05] LABS: CALCIUM 9.6 mg/dL (8.5-10.1)
[2023-04-01 17:06] LABS: ALBUMIN 3.9 g/dl (3.4-5.0); BLOOD UREA NITROGEN 13.1 mg/dL (7-18)
[2023-04-01 17:09] LABS: CREATININE 0.8 mg/dL (0.55-1.3)
[2023-04-01 17:11] LABS: BILIRUBIN,TOTAL 0.5 mg/dL (0.2-1); TOT PROT 7.6 g/dl (6.4-8.2)
[2023-04-01 19:54] VITALS: RESP 20
== END 2023-04-01 20:01 | disposition home or self-care (01) ==
LOC: JER 15:20
PROC: 3E033GC Introduction of Other Therapeutic Substance into Peripheral Vein, Percutaneous Approach (ICD-10-PCS; principal; 2023-04-01)
PROC: 3E0F7GC Introduction of Other Therapeutic Substance into Respiratory Tract, Via Natural or Artificial Opening (ICD-10-PCS; 2023-04-01)
DX: J45.909 Unspecified asthma, uncomplicated (principal); R06.02 Shortness of breath; R05.9 Cough, unspecified; R07.9 Chest pain, unspecified; Z20.822 Contact with and (suspected) exposure to COVID-19
CPT/HCPCS: 0241U-QW; 36415; 71045-TC-FY; 80053; 84484; 85025; 93005; 93010; 99285-25; J1100

== ENCOUNTER 2023-05-24 02:17 | Emergency (ER) | payer OTHER ==
[2023-05-24 02:26] VITALS: BMI 26.4
[2023-05-24] MEDS: ALBUTEROL SO4 2.5/IPRATROPIUM 0.5 INH SOL 3 ML VIAL.NEB. NEB SCH ×4 (04:00→04:54)
[2023-05-24 04:34] LABS: BASO % 1.2 % (0-2.0); EOS % 2.1 % (0-4.5); HEMATOCRIT 38.2 % (32.4-45.2); HEMOGLOBIN 13.2 GM/dL (10.7-15.3); LYMPH % 17.5 % (8-40); MCH 30.2 pg (25.7-33.7); MCHC 34.5 g/dl (32.0-36.0); MEAN CELL VOLUME 87.5 fl (80-96); MEAN PLT VOLUME 9.6 fl (7.5-11.1); MONO % 2.9 % (3.8-10.2); NEUT % 76.3 % (42.8-82.8); PLATELET COUNT 176 10^3/uL (134-434); RBC 4.36 M/mm3 (3.60-5.2); RDW 14.1 % (11.6-15.6); WHITE BLOOD COUNT 6.3 K/mm3 (4.0-10.0)
[2023-05-24 05:42] LABS: POTASSIUM 3.7 mmol/L (3.5-5.1)
[2023-05-24 05:44] LABS: CALCIUM 8.3 mg/dL (8.5-10.1)
[2023-05-24 05:45] LABS: ALBUMIN 3.7 g/dl (3.4-5.0)
[2023-05-24 05:48] LABS: CREATININE 0.9 mg/dL (0.55-1.3)
[2023-05-24 05:49] LABS: BILIRUBIN,TOTAL 0.2 mg/dL (0.2-1); TOT PROT 6.7 g/dl (6.4-8.2)
[2023-05-24] MEDS ORDERED: ALBUTEROL SO4 0.083% IH SOL 2.5 MG/3 ML VIAL.NEB. NEB ONE ×2 (05:51→06:23)
[2023-05-24 06:59] VITALS: BP 116/52; PULSE 99; RESP 13; TEMP 98
== END 2023-05-24 07:07 | disposition home or self-care (01) ==
LOC: JER 02:17
PROC: 3E0F7GC Introduction of Other Therapeutic Substance into Respiratory Tract, Via Natural or Artificial Opening (ICD-10-PCS; principal; 2023-05-24)
DX: J45.909 Unspecified asthma, uncomplicated (principal); Z20.822 Contact with and (suspected) exposure to COVID-19
CPT/HCPCS: 0241U-QW; 36415; 71045-TC-FY; 80053; 84484; 85025; 93005; 93010; 99285-25